=== PATIENT | male | born 1955 | race Caucasian/White ===

== ENCOUNTER → 2017-03-07 | Outpatient (CLI) | payer BC ==
[2017-03-07 08:28] LABS: Basophils # (A) 0.1 k/uL (0-0.2); Basophils % (A) 1 %; CH 33.6; CHCM 34.8; Eosinophils # (A) 0.3 k/uL (0-0.7); Eosinophils % (A) 5 %; HCT 48.7 % (39.0-53.0); HDW 2.72; Luc # (Auto) 0.13; Luc % (Auto) 2; Lymphocytes # (A) 1.7 k/uL (1.0-4.8); Lymphocytes % (A) 26 %; MCH 31.9 pg (25.0-35.0); MCHC 32.9 g/dL (31.0-37.0); MCV 96.9 fL (80.0-100.0); Mean Platelet Volume 8.3; Monocytes # (A) 0.5 k/uL (0-1.0); Monocytes % (A) 8 %; Neutrophils # (A) 3.9 k/uL (1.3-7.7); Neutrophils % (A) 58 %; RBC 5.02 m/uL (4.30-5.90); RDW 13.9 % (11.5-15.5); WBC 6.6 k/uL (3.8-10.6); WBC (Perox) 6.24
[2017-03-07 13:13] LABS: ALT 36 U/L (21-72); AST 28 U/L (17-59); Alkaline Phosphatase 55 U/L (38-126); Anion Gap 9 mmol/L; Blood Urea Nitrogen 26 mg/dL (9-20); Calcium 9.5 mg/dL (8.4-10.2); Carbon Dioxide 24 mmol/L (22-30); Chloride 106 mmol/L (98-107); Cholesterol 133 mg/dL (<200); Glucose 100 mg/dL (74-99); HDL Cholesterol 40 mg/dL (40-60); Non-African American GFR(MDRD) >60 (>60 ml/min/1.73 sqM); Potassium 5.3 mmol/L (3.5-5.1); Sodium 139 mmol/L (137-145); Total Bilirubin 0.8 mg/dL (0.2-1.3); Total Protein 6.5 g/dL (6.3-8.2)
== END | disposition home or self-care (01) ==
LOC: LABWHC1 07:41
PROVIDERS: ATTEND Internal Medicine Critical Care Medicine
DX: Z00.00 Encounter for general adult medical examination without abnormal findings (principal); I10 Essential (primary) hypertension; E78.5 Hyperlipidemia, unspecified; E03.9 Hypothyroidism, unspecified; H40.9 Unspecified glaucoma; Z12.5 Encounter for screening for malignant neoplasm of prostate
CPT/HCPCS: 84439; 80061; 80053; 83036; 84443; 85025; 82306; 36415; G0103

== ENCOUNTER → 2017-09-16 | Outpatient (CLI) | payer BC ==
[2017-09-16 10:59] LABS: T4, Free (Free Thyroxine) 1.44 ng/dL (0.78-2.19)
[2017-09-16 16:20] LABS: Thyroid Peroxidase Antibodies 51.3 U/mL (0.0-60.0)
[2017-09-16 17:39] LABS: Thyroglobulin 37.1 ng/mL (1.60-59.90)
[2017-09-17 11:18] LABS: T4, Total 9.3 ug/dL (4.5 - 10.9)
== END | disposition home or self-care (01) ==
LOC: LABWHC1 07:39
PROVIDERS: ATTEND Chiropractor
DX: E03.9 Hypothyroidism, unspecified (principal); R53.1 Weakness
CPT/HCPCS: 36415; 84432; 84436; 84439; 84443; 84479; 84480; 84481; 84482; 86376

== ENCOUNTER → 2018-03-30 | Outpatient (CLI) | payer BC ==
[2018-03-30 08:25] LABS: Basophils # (A) 0.1 k/uL (0-0.2); Basophils % (A) 1 %; Eosinophils # (A) 0.4 k/uL (0-0.7); Eosinophils % (A) 7 %; HCT 46.4 % (39.0-53.0); HGB 15.9 gm/dL (13.0-17.5); Lymphocytes # (A) 1.5 k/uL (1.0-4.8); Lymphocytes % (A) 26 %; MCH 32.2 pg (25.0-35.0); MCHC 34.3 g/dL (31.0-37.0); MCV 93.9 fL (80.0-100.0); Mean Platelet Volume 7.7; Monocytes # (A) 0.5 k/uL (0-1.0); Monocytes % (A) 8 %; Neutrophils # (A) 3.3 k/uL (1.3-7.7); Neutrophils % (A) 57 %; Platelet Count 189 k/uL (150-450); RBC 4.94 m/uL (4.30-5.90); RDW 13.3 % (11.5-15.5); WBC 5.8 k/uL (3.8-10.6)
[2018-03-30 09:05] LABS: Albumin 4.1 g/dL (3.5-5.0); Calcium 9.8 mg/dL (8.4-10.2); Potassium 4.6 mmol/L (3.5-5.1); Total Bilirubin 0.8 mg/dL (0.2-1.3); Total Protein 6.5 g/dL (6.3-8.2)
[2018-03-30 09:20] LABS: T4, Free (Free Thyroxine) 1.19 ng/dL (0.78-2.19)
[2018-03-30 12:09] LABS: PSA Annual Screen 3.97 ng/mL (0.00-4.00)
== END | disposition home or self-care (01) ==
LOC: LABWHC1 07:27
PROVIDERS: ATTEND Internal Medicine Critical Care Medicine
DX: Z00.00 Encounter for general adult medical examination without abnormal findings (principal); I10 Essential (primary) hypertension; E78.5 Hyperlipidemia, unspecified; E03.9 Hypothyroidism, unspecified; H40.9 Unspecified glaucoma; Z12.5 Encounter for screening for malignant neoplasm of prostate
CPT/HCPCS: 84439; 80061; 80053; 84443; 85025; 82306; 83036; 36415; G0103

== ENCOUNTER → 2018-10-20 | Outpatient (CLI) | payer BC | END | disposition home or self-care (01) | LOC: LABWHC1 07:22 | PROVIDERS: ATTEND Urology | DX: C61 Malignant neoplasm of prostate (principal) | CPT/HCPCS: 36415; 84153 ==

== ENCOUNTER → 2019-04-20 | Outpatient (CLI) | payer BC ==
[2019-04-20 08:28] LABS: Basophils # (A) 0.1 k/uL (0-0.2); Basophils % (A) 1 %; Eosinophils # (A) 0.4 k/uL (0-0.7); Eosinophils % (A) 6 %; HCT 45.6 % (39.0-53.0); HGB 15.8 gm/dL (13.0-17.5); Lymphocytes # (A) 1.6 k/uL (1.0-4.8); Lymphocytes % (A) 24 %; MCHC 34.8 g/dL (31.0-37.0); MCV 94.7 fL (80.0-100.0); Mean Platelet Volume 7.1; Monocytes # (A) 0.5 k/uL (0-1.0); Monocytes % (A) 7 %; Neutrophils # (A) 3.8 k/uL (1.3-7.7); Neutrophils % (A) 59 %; Platelet Count 210 k/uL (150-450); RBC 4.81 m/uL (4.30-5.90); WBC 6.4 k/uL (3.8-10.6)
[2019-04-20 11:43] LABS: African American GFR (CKD) 67.3 (60.0-200.0); Albumin 4.6 g/dL (3.80-4.90); Albumin/Globulin Ratio 2.88 (1.60-3.17); Anion Gap 6.4 mmol/L (4.00-12.00); BUN/Creat Ratio 16.92 Ratio (12.00-20.00); C Reactive Protein, High Sens 0.73 mg/L (0.000-3.000); Calcium 9.6 mg/dL (8.7-10.3); Carbon Dioxide 26.6 mmol/L (21.6-31.8); Chol/HDL Ratio 3.97; Globulin 1.6 g/dL (1.6-3.3); LDL Cholesterol,Calculated 93.8 mg/dL (0.0-131.0); Total Bilirubin 0.9 mg/dL (0.3-1.2); Total Protein 6.2 g/dL (6.2-8.2); VLDL Calculation 22.2 mg/dL (5.00-40.00)
[2019-04-20 11:50] LABS: T4, Free (Free Thyroxine) 1.4 ng/dL (0.80-1.80)
[2019-04-20 12:59] LABS: Hemoglobin A1C 4.7 % (4.0-6.0)
== END ==
LOC: LABWHC1 07:25
PROVIDERS: ATTEND Internal Medicine Critical Care Medicine
DX: Z00.00 Encounter for general adult medical examination without abnormal findings (principal); E78.5 Hyperlipidemia, unspecified; I10 Essential (primary) hypertension; E03.9 Hypothyroidism, unspecified; C61 Malignant neoplasm of prostate; H40.9 Unspecified glaucoma; I25.10 Atherosclerotic heart disease of native coronary artery without angina pectoris
CPT/HCPCS: 84439; 80061; 80053; 84443; 85025; 86141; 82306; 83036; 36415; G0103

== ENCOUNTER → 2019-04-22 | Outpatient (CLI) | payer BC ==
--- NOTE | 2019-04-22 11:59 | NM ---
EXAMINATION TYPE: NM stress cardiolite complete DATE OF EXAM: 04/22/2019 COMPARISON: NONE HISTORY: Chest pain and shortness of breath TECHNIQUE: After the intravenous administration of 10.0 mCi Tc 99m Sestamibi - Rest images obtained 45 minutes post injection. The patient exercised using a LOWELL protocol and 1 minute prior to peak exercise was injected with 25.3 mCi Tc 99m Sestamibi - Stress images obtained 20 minutes post injecti on. FINDINGS: Targeted heart rate was achieved during performance of the study. Very mild physiologic apical thinni ng. Review of stress and rest SPECT images demonstrates no distinct perfusion abnormality. Gated bernardo lysis shows normal wall motion with an estimated left ventricular ejection fraction of 60 %. TID is w ithin normal limits calculated at 0.96. IMPRESSION: No scintigraphic evidence for reversible ischemia
--- NOTE | 2019-04-22 13:20 | EST ---
EXERCISE STRESS DATE OF SERVICE: 04/22/2019 AGE: 64 SEX: Male HT: 71" WT: 220 pounds PROTOCOL: Cardiolite Silvestre STAGE: IV DURATION OF EXERCISE: 11 minutes 30 seconds HEART RATE REST: 51 BLOOD PRESSURE REST: 114/76 MAXIMUM HEART RATE ACHIEVED: 135 MAXIMUM BLOOD PRESSURE: 191/68 85% MPHR: 133 100% MPHR: 157 METS: 12.1 INDICATIONS: Chest pain. CLINICAL INFORMATION: STRESS DATA: Heart rate 51, pressure is 114/76 mmHg. Baseline EKG showed sinus mechanism. The patient exercised on the treadmill according to Silvestre protocol for a total of 11 minutes and 30 seconds and achieved 12.1 METs. Max heart rate was 135, which is about 86% of maximum predicted heart rate. Maximum blood pressure was 191/68 mmHg. Clinically the patient did not have any symptoms of chest pain or chest discomfort during the testing or on recovery. The EKG did not show any significant ST or T-wave abnormalities concerning for ischemia. CONCLUSION: 1. Excellent exercise tolerance. 2. Normal EKG in response to exercise. 3. Please follow up on the Cardiolite portion on separate report from Radiology Department. MMODL / IJN: [id number] /
== END | disposition home or self-care (01) ==
LOC: RADNMMAIN 07:54
PROVIDERS: ATTEND Internal Medicine Critical Care Medicine
DX: I25.10 Atherosclerotic heart disease of native coronary artery without angina pectoris (principal); R06.02 Shortness of breath
CPT/HCPCS: 93017; 78452; A9500

== ENCOUNTER → 2019-05-21 | Outpatient (CLI) | payer BC ==
--- NOTE | 2019-05-23 10:57 | MR ---
EXAMINATION TYPE: MR Prostate wo/w con DATE OF EXAM: 05/21/2019 COMPARISON: None. IMAGE QUALITY: Satisfactory. INDICATION: Malignant neoplasm of prostate PSA: 4.9 ng/ml on April 20, 2019. Recent Biopsy and Date: April 27, 2018 Pathology Report (If Applicable): Right lateral base adenocarcinoma [place] 3+3 = 6 1.7 mm length 12% tissue. Left lateral apex adenocarcinoma [place] grade 3+3 = 6 measuring 0.3 mm in length 1.6% tissu e. TECHNIQUE: Examination was performed using a 3T MRI without an endorectal coil. Multiparametric imaging was perf ormed with T2 mutliplanar sequences, axial diffusion weighted imaging and dynamic contrast enhanced i maging, utilizing 11 mL intravenous Gadavist gadolinium contrast. FINDINGS: There is no clinically significant cancer identified. PROSTATE VOLUME: 4.7 cm SI x 4.4 cm AP x 5.3 cm LR Vol= 57.39 cc PSA DENSITY: 6.89 ng/ml/cc Peripheral zones show some slight indistinct hypointense areas on ADC mapping without significant foc al areas at least qust-po-mndgclnl hypointensity. In the right base there is area of heterogeneous diminished signal with obscured margins seen best co fermín image 7 lateral aspect without restricted diffusion. No areas of at least moderately hypointens e signal are identified on T2 weighted images. Prostatic capsule is intact. Seminal vesicles are within normal limits. No adjacent adenopathy is see n. No internal hemorrhage noted on T1-weighted images. Bladder shows mild trabeculation and minimal c oncentric wall thickening. Visualized osseous structures are intact. No pelvic fluid collection is seen. Visualized bowel loops show occasional diverticula. IMPRESSION: A focus of clinically significant cancer is not identified. Highest Assessment Category: 3 MRI Stage: T1c N0 M0 based on review of pelvic images. False negative rates for MRI range from 5-20% depending on risk profile. Assessment Categories: 1 ? Very low (clinically significant cancer is highly unlikely to be present) 2 ? Low (clinically significant cancer is unlikely to be present) 3 ? Intermediate (the presence of clinically significant cancer is equivocal) 4 ? High (clinically significant cancer is likely to be present) 5 ? Very high (clinically significant cancer is highly likely to be present)
== END | disposition home or self-care (01) ==
LOC: RADMRIMAIN 05:57
PROVIDERS: ATTEND Urology
DX: C61 Malignant neoplasm of prostate (principal)
CPT/HCPCS: 72197; A9585

== ENCOUNTER → 2020-10-05 | Outpatient (CLI) | payer BC ==
[2020-10-05 15:30] LABS: Basophils # (A) 0.05 X 10*3/uL (0.00-0.10); Basophils % (A) 0.9 %; Eosinophils # (A) 0.43 X 10*3/uL (0.04-0.35); Eosinophils % (A) 7.4 %; HCT 44.5 % (39.6-50.0); HGB 15.5 g/dL (13.0-17.0); Lymphocytes # (A) 1.63 X 10*3/uL (0.90-5.00); Lymphocytes % (A) 28.2 %; MCH 32.7 pg (27.0-32.0); MCHC 34.8 g/dL (32.0-37.0); MCV 93.9 fL (80.0-97.0); Mean Platelet Volume 11.5 fL (9.5-12.2); Monocytes # (A) 0.61 X 10*3/uL (0.20-1.00); Monocytes % (A) 10.5 %; Neutrophils # (A) 3.06 X 10*3/uL (1.80-7.70); Neutrophils % (A) 52.8 %; Platelet Count 185 X 10*3/uL (140-440); RBC 4.74 X 10*6/uL (4.40-5.60); RDW 12.7 % (11.5-14.5); WBC 5.79 X 10*3/uL (4.50-10.00)
[2020-10-05 23:10] LABS: African American GFR (CKD) 73.6 (60.0-200.0); Albumin 4.5 g/dL (3.80-4.90); Anion Gap 7.8 mmol/L (4.00-12.00); Carbon Dioxide 23.2 mmol/L (21.6-31.8); Chol/HDL Ratio 4.74; Globulin 1.5 g/dL (1.6-3.3); Non-African American GFR(CKD) 63.5 (60.0-200.0); Potassium 4.6 mmol/L (3.5-5.5); Total Bilirubin 0.8 mg/dL (0.2-1.2)
[2020-10-05 23:19] LABS: Prostate Specific Antigen 6.2 ng/mL (0.0-4.5); T4, Free (Free Thyroxine) 1.3 ng/dL (0.80-1.80)
== END | disposition home or self-care (01) ==
LOC: LABWHC1 07:38
PROVIDERS: ATTEND Urology
DX: E78.5 Hyperlipidemia, unspecified (principal); E03.9 Hypothyroidism, unspecified; I10 Essential (primary) hypertension; C61 Malignant neoplasm of prostate
CPT/HCPCS: 36415; 80053; 80061; 82306; 83036; 84153; 84439; 84443; 85025

== ENCOUNTER → 2021-03-22 | Outpatient (CLI) | payer BC ==
--- NOTE | 2021-03-22 15:37 | MR ---
EXAMINATION TYPE: MR knee LT wo con DATE OF EXAM: 03/22/2021 COMPARISON: Outside left knee x-rays March 05, 2021 HISTORY: Left knee pain and swelling, injury 3 months ago while exercising. TECHNIQUE: Multiplanar, multisequence imaging of the left knee is performed without IV contrast. FINDINGS: MEDIAL MENISCUS: Wrist fraying along the posterior and inferior aspect of the posterior horn medial m eniscus with loss deep central portion of the meniscus. LATERAL MENISCUS: Anterior and posterior horns are intact without tear. CRUCIATE LIGAMENTS: The anterior and posterior cruciate ligaments are intact and unremarkable. COLLATERAL LIGAMENTS: The medial collateral ligament and lateral collateral ligament complex are inta ct and unremarkable. EXTENSOR MECHANISM: Visualized quadriceps and patellar tendons are intact. EFFUSION: No significant suprapatellar joint effusion. POPLITEAL CYST: No popliteal/loco cyst. TRICOMPARTMENT SPACES: Moderate to severe narrowing inferior patellofemoral compartment. Moderate to severe narrowing medial greater than lateral tibiofemoral compartments. Mild to moderate tricompartme nt joint space spurring. CARTILAGE: Significant chondromalacia patella with full-thickness cartilaginous loss along the inferi or aspect of the posterior patellar pole. Significant full-thickness cartilaginous loss medial tibiof emoral compartment. BONE MARROW SIGNAL: Some areas of heterogeneous increased T2 signal in the inferior posterior patella r pole at site of full-thickness cartilaginous loss. In the distal medial femoral condyle there is serpiginous low T1 signal sagittal image 23 and coronal image 23 along the posterior medial aspect extending to articular surface. There are additional area s of heterogeneous increased T2 signal throughout the posterior aspect of the distal medial femoral c ondyle. There are some heterogeneous areas of increased T2 signal involving the anterior medial aspec t of the tibial plateau. OTHER: No additional significant abnormality is appreciated. IMPRESSION: 1. Full-thickness tear posterior horn into central body with large defect appreciated. Location of me niscal fragment is not distinctly identified. 2. Moderate to advanced degenerative changes greatest inferior patellofemoral and medial tibiofemoral compartments as detailed above. Evidence of subchondral insufficiency fracture without bony fragment ation in the posterior medial aspect distal femur medial femoral condyle.
== END | disposition home or self-care (01) ==
LOC: RADMRIMAIN 07:38
PROVIDERS: ATTEND Orthopaedic Surgery
DX: M17.12 Unilateral primary osteoarthritis, left knee (principal); M23.222 Derangement of posterior horn of medial meniscus due to old tear or injury, left knee

== ENCOUNTER → 2021-04-02 | Outpatient (CLI) | payer BC ==
[2021-04-02 12:03] LABS: Potassium 4.6 mmol/L (3.5-5.1)
[2021-04-02 12:43] LABS: Basophils # (A) 0.1 k/uL (0-0.2); Basophils % (A) 1 %; Eosinophils # (A) 0.6 k/uL (0-0.7); Eosinophils % (A) 7 %; HCT 48.6 % (39.0-53.0); HGB 16.2 gm/dL (13.0-17.5); Hyperchromasia Slight; Lymphocytes # (A) 2.1 k/uL (1.0-4.8); Lymphocytes % (A) 26 %; MCHC 33.4 g/dL (31.0-37.0); MCV 95.9 fL (80.0-100.0); Mean Platelet Volume 8.9; Monocytes # (A) 0.6 k/uL (0-1.0); Monocytes % (A) 7 %; Neutrophils # (A) 4.6 k/uL (1.3-7.7); Neutrophils % (A) 56 %; Platelet Count 198 k/uL (150-450); RBC 5.06 m/uL (4.30-5.90); RDW 13.4 % (11.5-15.5); WBC 8.2 k/uL (3.8-10.6)
== END | disposition home or self-care (01) ==
LOC: LABPAT 11:13
PROVIDERS: ATTEND Orthopaedic Surgery
DX: Z01.818 Encounter for other preprocedural examination (principal); M23.92 Unspecified internal derangement of left knee; R00.1 Bradycardia, unspecified
CPT/HCPCS: 36415; 80051; 85025; 93005

== ENCOUNTER → 2021-04-13 | Day surgery (SDC) | payer BC ==
--- NOTE | 2021-04-11 13:35 | HP ---
HISTORY AND PHYSICAL CHIEF COMPLAINT: Left knee pain. 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 He hurt himself on his elliptical. He notes medial pain that increases with daily activity. He occasionally has giving way, particularly going downstairs. He has tried medications in addition to rest and activity modifications, without much relief. PAST MEDICAL HISTORY: Significant for hypertension, hyperlipidemia and hypothyroidism. PAST SURGICAL HISTORY: Significant for tonsillectomy. CURRENT MEDICATIONS: Combigan, lisinopril, simvastatin and Synthroid. ALLERGIES: PENICILLIN. FAMILY HISTORY: Noncontributory. SOCIAL HISTORY: Significant for social alcohol use. REVIEW OF SYSTEMS: Sixteen-point review of systems otherwise reviewed and is noncontributory. PHYSICAL EXAMINATION: On examination, the patient is approximately 5 feet 11 inches, 215 pounds of endomorphic habitus. HEENT exam is nonfocal. Neck is supple. He has painless passive motion of his left hip. Straight-leg raise is negative. Active motion of the left knee minus 8 to 120 degrees of flexion. He has a mild effusion. He is tender about the medial joint line. Collaterals are stable, Catherine is negative, Дмитрий's elicits medial pain. His distal neurovascular exam appears intact in the left lower extremity. MRI report left knee 03/22/2021 shows evidence of a posteromedial meniscal tear along with posteromedial femoral condyle chondral defect. IMPRESSION: 1. Left knee internal derangement with symptomatic medial meniscal tear. 2. Left knee moderate tricompartmental osteoarthrosis. RECOMMENDATIONS: I talked to the patient at length regarding his condition along with treatment options. At this point he is quite symptomatic, having pain and mechanical symptoms after this acute injury despite conservative treatment. After a thorough discussion, he opts to proceed with surgery. We will plan to proceed with arthroscopic evaluation with possible partial medial meniscectomy in addition to arthroscopic medial femoral chondrectomy. We will likely perform that as an outpatient procedure. Risks and benefits were discussed at length in layman's terms. MMODL / IJN: [id number] /
[2021-04-11 15:35] VITALS: BMI 29.9
[~2021-04-13] MED LIST: CLINDAMYCIN 900 MG in DEXTROSE 5% IN WATER 50 ML IVPB PRN; DEXAMETHASONE SOD PHOSPHATE 4 MG/ML 1 ML VIAL IV ONE; HYDROcodone/APAP 5-325MG 1 EACH TAB ONE; HYDROcodone/APAP 5-325MG 1 EACH TAB PO ONE; LACTATED RINGERS 1,000 ML IV ONE; LACTATED RINGERS 1,000 ML IV SCH; LIDOCAINE 1% INJ 10MG/ML (20 ML MDV) ONE; MIDAZOLAM 2 MG/2 ML VIAL IV PRN; MIDAZOLAM 2 MG/2 ML VIAL ONE; ONDANSETRON 4 MG/2 ML VIAL IVP ONE; ONDANSETRON 4 MG/2 ML VIAL ONE; PROPOFOL 10 MG/ML 20 ML VIAL IV ONE; Pre Op ABX Message 1 EACH MISC MISCELLANE ONE; SCOPOLAMINE 1.5MG/72HR PATCH TRANSDERM ONE; fentaNYL (PF) 50 MCG/ML 2 ML AMP ONE
--- NOTE | 2021-04-13 12:22 | P.OP ---
Date of Procedure: 04/13/21 Preoperative Diagnosis: Left knee internal derangement Postoperative Diagnosis: Left knee posterior medial meniscal tear Procedure(s) Performed: Left knee arthroscopic partial medial meniscectomy Anesthesia: FELIXA Surgeon: Dylan Mcqueen Estimated Blood Loss (ml): 10 Pathology: none sent Condition: stable Disposition: PACU Indications for Procedure: Patient 66-year-old male who presents with progressive left knee pain and mechanical symptoms after previous twisting injury despite conservative measures. A discussion of the risks and benefits of operative intervention versus continued conservative measures was made patient. He opted to surgery. Operative risks to include infection, neurovascular injury, development of blood clots, possible incomplete resolution of symptoms, possible worsening symptoms and need for subsequent procedures was discussed. Informed consent was obtained. Operative Findings: As below Description of Procedure: The patient was brought to the operating room, and after induction of general anesthesia examined the left knee. Collaterals were stable, Catherine was negative, and posterior drawer was negative. The left lower extremity was prepped and draped in a normal fashion. A superior lateral portal was made through a 3 mm skin incision superior and lateral to the patella. This was used for outflow. A lateral portal was made through a 5 mm vertical skin incision lateral to the patella tendon above the joint line. Diagnostic arthroscopy was performed. On inspection of the medial compartment, a complex tear involving the posterior horn medial meniscus in the white-red junction was noted. This was debrided back to stable base with straight baskets and a motorized shaver. Grade 2-3 chondral changes were noted diffusely involving the posterior medial femoral condyle. On inspection of the notch, the anterior cruciate ligament appeared to be intact. On inspection of the lateral compartment, grade 2 chondral changes were noted diffusely. The lateral meniscus appeared to be intact.. On inspection of the patellofemoral articulation, there is chondral fibrillation however no loose chondral fragments. The gutters were clear debris. The knee was then thoroughly irrigated. The portals were closed with Steri-Strips. A sterile dressing was applied in addition to a compression stocking. The patient was awoken from general anesthesia and transferred to r ecovery room in good condition. Blood loss was estimated at 10 mL. No complications were incurred.
[2021-04-13 12:29] VITALS: TEMP 97.5
[2021-04-13] MEDS: HYDROmorphone 0.5 MG/0.5 ML SYRINGE IVP PRN ×2 (12:34→12:46)
[2021-04-13 14:37] VITALS: BP 129/85; PULSE 56; RESP 16
== END | disposition home or self-care (01) ==
LOC: OR 10:11
PROVIDERS: ATTEND Orthopaedic Surgery
DX: S83.242A Other tear of medial meniscus, current injury, left knee, initial encounter (principal); M17.12 Unilateral primary osteoarthritis, left knee; Y93.A1 Activity, exercise machines primarily for cardiorespiratory conditioning; I10 Essential (primary) hypertension; E78.5 Hyperlipidemia, unspecified; E03.9 Hypothyroidism, unspecified; Z98.890 Other specified postprocedural states; Z79.890 Hormone replacement therapy; Z79.899 Other long term (current) drug therapy; Z88.0 Allergy status to penicillin; Z88.2 Allergy status to sulfonamides; Z85.46 Personal history of malignant neoplasm of prostate
CPT/HCPCS: 29881; J2250; J1100; J2405; J2001; J3010; J2704; J1170

== ENCOUNTER 2021-05-16 08:09 | Day surgery (SDC) | payer BC ==
[2021-05-09 11:51] VITALS: BMI 30.7
[~2021-05-16 08:09] MED LIST changes: -CLINDAMYCIN 900 MG in DEXTROSE 5% IN WATER 50 ML IVPB PRN; -DEXAMETHASONE SOD PHOSPHATE 4 MG/ML 1 ML VIAL IV ONE; -HYDROcodone/APAP 5-325MG 1 EACH TAB ONE; -HYDROcodone/APAP 5-325MG 1 EACH TAB PO ONE; -LACTATED RINGERS 1,000 ML IV ONE; -LIDOCAINE 1% INJ 10MG/ML (20 ML MDV) ONE; -MIDAZOLAM 2 MG/2 ML VIAL IV PRN; -MIDAZOLAM 2 MG/2 ML VIAL ONE; -ONDANSETRON 4 MG/2 ML VIAL IVP ONE; -ONDANSETRON 4 MG/2 ML VIAL ONE; -PROPOFOL 10 MG/ML 20 ML VIAL IV ONE; -Pre Op ABX Message 1 EACH MISC MISCELLANE ONE; -SCOPOLAMINE 1.5MG/72HR PATCH TRANSDERM ONE; -fentaNYL (PF) 50 MCG/ML 2 ML AMP ONE
[2021-05-16 08:37] VITALS: TEMP 96
[2021-05-16] MEDS ORDERED: LIDOCAINE 1% INJ 10MG/ML (20 ML MDV) ONE (09:08)
[2021-05-16] MEDS ORDERED: PROPOFOL 10 MG/ML 20 ML VIAL IV ONE (09:08)
--- NOTE | 2021-05-16 09:24 | P.PCN ---
Date of Procedure: 05/16/21 Procedure(s) Performed: BRIEF HISTORY: Patient is a 66-year-old pleasant white male scheduled for an elective colonoscopy as a part of screening for colorectal neoplasia. PROCEDURE PERFORMED: Colonoscopy. PREOPERATIVE DIAGNOSIS: Screening for colon cancer. IV sedation per Anesthesia. PROCEDURE: After informed consent was obtained, the patient, was brought into the endoscopy unit. IV sedation was administered by Anesthesia under continuous monitoring. Digital rectal examination was normal. Initially the Olympus CF-160 flexible video colonoscope was then inserted in the rectum, gradually advanced into the cecum without any difficulty. Careful examination was performed as the scope was gradually being withdrawn. Ileocecal valve and the appendiceal orifice were visualized and appeared normal. Prep was excellent. Mucosa of the cecum, ascending colon, transverse colon, descending colon, sigmoid colon, and rectum appeared normal. Scattered sigmoid diverticulosis. Retroflexion was performed in the rectum and small internal were seen. The patient tolerated the procedure well. IMPRESSION: Normal-appearing colon from rectum to cecum with no evidence of colorectal neoplasia . Scattered sigmoid diverticulosis RECOMMENDATIONS: Findings of this examination were discussed with the patient as well as his family. Advised to have a repeat screening colonoscopy in 10 years..
[2021-05-16 09:53] VITALS: BP 136/81; PULSE 62; RESP 16
== END 2021-05-16 10:19 | disposition home or self-care (01) ==
LOC: ORWHC2ENDO 08:09
PROVIDERS: ATTEND Internal Medicine Gastroenterology
DX: Z12.11 Encounter for screening for malignant neoplasm of colon (principal); K57.30 Diverticulosis of large intestine without perforation or abscess without bleeding
CPT/HCPCS: G0121; J2001; J2704

== ENCOUNTER → 2021-10-05 | Outpatient (CLI) | payer BC ==
[2021-10-05 10:25] LABS: Basophils # (A) 0.06 X 10*3/uL (0.00-0.10); Basophils % (A) 1.2 %; Eosinophils # (A) 0.54 X 10*3/uL (0.04-0.35); Eosinophils % (A) 10.8 %; HCT 43.2 % (39.6-50.0); HGB 14.9 g/dL (13.0-17.0); Immature Grans, Automated 0.4 %; Lymphocytes # (A) 1.69 X 10*3/uL (0.90-5.00); Lymphocytes % (A) 33.7 %; MCH 31.6 pg (27.0-32.0); MCHC 34.5 g/dL (32.0-37.0); MCV 91.5 fL (80.0-97.0); Mean Platelet Volume 11.2 fL (9.5-12.2); Monocytes # (A) 0.74 X 10*3/uL (0.20-1.00); Monocytes % (A) 14.7 %; NRBC Per 100 WBC 0 /100 WBCS (0.0-0.0); Neutrophils # (A) 1.97 X 10*3/uL (1.80-7.70); Neutrophils % (A) 39.2 %; Platelet Count 196 X 10*3/uL (140-440); RBC 4.72 X 10*6/uL (4.40-5.60); RDW 12.8 % (11.5-14.5); WBC 5.02 X 10*3/uL (4.50-10.00)
[2021-10-05 10:49] LABS: ALT 40 U/L (10-49); AST 36 U/L (14-35); African American GFR (CKD) 73.1 (60.0-200.0); Albumin 4.4 g/dL (3.8-4.9); Albumin/Globulin Ratio 2.75 (1.60-3.17); Alkaline Phosphatase 60 U/L (41-126); BUN/Creat Ratio 22.17 Ratio (12.00-20.00); Blood Urea Nitrogen 26.6 mg/dL (9.0-27.0); Calcium 9.2 mg/dL (8.7-10.3); Carbon Dioxide 24.9 mmol/L (20.0-27.5); Chloride 106 mmol/L (96-109); Chol/HDL Ratio 4.31 Ratio; Globulin 1.6 g/dL (1.6-3.3); Glucose 116 mg/dL (70-110); LDL Cholesterol,Calculated 92.4 mg/dL (0.0-131.0); Non-African American GFR(CKD) 63.1 (60.0-200.0); Sodium 139 mmol/L (135-145)
== END | disposition home or self-care (01) ==
LOC: LABWHC1 07:12
PROVIDERS: ATTEND Internal Medicine Critical Care Medicine
DX: Z00.00 Encounter for general adult medical examination without abnormal findings (principal); C61 Malignant neoplasm of prostate; I10 Essential (primary) hypertension; E78.5 Hyperlipidemia, unspecified; E03.9 Hypothyroidism, unspecified; H40.9 Unspecified glaucoma
CPT/HCPCS: 84439; 80061; 80053; 84443; 85025; 82306; 83036; 36415; G0103

== ENCOUNTER → 2021-11-29 | Outpatient (CLI) | payer BC | END | disposition home or self-care (01) | LOC: LABWHC1 08:25 | PROVIDERS: ATTEND Urology | DX: C61 Malignant neoplasm of prostate (principal) | CPT/HCPCS: 36415; 84153 ==

== ENCOUNTER → 2022-01-22 | Outpatient (CLI) | payer BC ==
--- NOTE | 2022-01-25 22:25 | MR ---
EXAMINATION TYPE: MR Prostate wo/w con DATE OF EXAM: 01/22/2022 10:28 AM COMPARISON: 05/23/2019 prostate MRI. CLINICAL INDICATION:Male, 66 years old with history of C61 Prostate cancer; TECHNIQUE: Multi-planar, multi-sequence imaging of the pelvis is performed prior to and following the uncomplicated administration of bolus intravenous gadolinium. CONTRAST: 10 Gadavist Interpretive Criteria: PI-RADS v2.1 SERUM PSA: 4.5 on 11/29/2021. SURGICAL PATHOLOGY: Biopsy 11/27/2020, benign. FINDINGS: Prostatic dimensions: 6.1 x 4.3 x 6.2 cm. Prostatic Ellipsoid Volume: 85.15 cc PSA density: 0.05 ng/mL/mL. CENTRAL GLAND (Central and Transition Zones/CZ+TZ): Multiple bilateral, heterogenous appearing hypertrophic stromal nodules, without suspicious lesion. M edian lobe hypertrophy with protrusion into the base of the bladder. (PI-RADS 2) PERIPHERAL ZONE (PZ): Bilateral linear, indistinct wedgelike areas of low ADC, and low T2 signal, No evidence of masslike a bnormality, or localized perfusional hypervascularity, to further suggest a focus of clinically signi ficant prostate cancer. (PI-RADS 2) SEMINAL VESICLES (SV): Diffusely collapse or atrophic, bilaterally. PERIPROSTATIC TISSUES: Unremarkable. LYMPH NODES: No enlarged pelvic lymph node. Mildly enlarged left inguinal lymph node measuring up to millimeters in short axis. REMAINING PELVIS: Bladder wall is within normal limits given distention. No abnormal free or organized intrapelvic fluid collection. No pathologic bowel dilation or mural thickening. Bilateral fat filled inguinal hernias. OSSEOUS STRUCTURES: No suspicious osseous abnormality. IMPRESSION: 1. No specific features for high-risk prostate cancer. Maximum PI-RADS score: 2. 2. Moderate BPH, estimated gland volume 85 mL. 3. No suspicious osseous lesion. No lymphadenopathy. No evidence of prostate adenocarcinoma involving the periprostatic tissues.
== END | disposition home or self-care (01) ==
LOC: RADMRIMAIN 09:13
PROVIDERS: ATTEND Urology
DX: C61 Malignant neoplasm of prostate (principal)
CPT/HCPCS: 72197; A9585

== ENCOUNTER 2022-02-19 09:23 | Emergency (ER) | payer BC ==
[2022-02-19 09:41] VITALS: BP 140/90; PULSE 63; RESP 20; TEMP 98
[2022-02-19] MEDS ORDERED: GELATIN SPONGE,ABSORB (SMALL) 1 EACH SPONGE TOPICAL STA (10:30)
[2022-02-19] MEDS ORDERED: DIPH,PERTUS(ACELL)TETVAC-LF 0.5 ML VIAL IM ONE (10:31)
--- NOTE | 2022-02-19 10:34 | ED ---
General Adult HPI - General Chief complaint: Wound/Laceration Stated complaint: Finger injury Time Seen by Provider: 02/19/22 10:30 Source: patient Mode of arrival: ambulatory Limitations: no limitations - History of Present Illness Initial comments: Dictation was produced using [employer] dictation software. please excuse any grammatical, word or spelling errors. Chief Complaint: 67-year-old male presents to the emergency department for left thumb injury History of Present Illness: Patient is 67-year-old male presents emergency depa rtment for left thumb injury. Patient was cutting with his which are knife when he cut a piece off the lateral portion of the palmar side of his thumb. Event occurred approximately 24 hours prior to arrival. He was urged by his to come to the emergency department to be evaluated. Patient's tetanus shot is not up-to-date. States it is been more than 5 years. Patient did not come to the emergency department yesterday because he felt like he did not need stitches. His is worried that he might get an infection. The ROS documented in this emergency department record has been reviewed and confirmed by me. Those systems with pertinent positive or negative responses have been documented in the HPI. All other systems are other negative and/or noncontributory. PHYSICAL EXAM: General Impression: Alert and oriented x3, not in acute distress HEENT: Normocephalic atraumatic, extra-ocular movements intact, pupils equal and reactive to light bilaterally, mucous membranes moist. Cardiovascular: Heart regular rate and rhythm Chest: Able to complete full sentences, no retractions, no tachypnea Motor: no focal deficits noted Neurological: CN II-XII grossly intact, no focal motor or sensory deficits noted Skin: Intact with no visualized rashes Psych: Normal affect and mood Left hand: Avulsion with exposed dermis to the lateral portion of the left thumb on the palmar side measuring approximately 4 x 4 millimeters. ED course: T7-year-old male presents to the emergency department clinical presentation consistent with avulsion injury to the tip of the left thumb. No indication for suture repair given that patient's wound is 24 hours out furthermore there does not appear to be any tissue to approximate for suture repair. Vital signs upon arrival are within acceptable limits. Gelfoam dressing was placed. Patient given prophylactic antibiotics to begin taking if he develops any sort of redness or discharge. Tetanus was updated. - Related Data Home Medications Medication Instructions Recorded Confirmed Brimonidine Tartrate/Timolol 1 drop LEFT EYE Q12HR 09/27/14 05/16/21 [Combigan 0.2%/0.5% Ophth Soln] Folic Acid 1 mg PO DAILY 09/27/14 05/16/21 Latanoprost 1 drop LEFT EYE HS 09/27/14 05/16/21 Levothyroxine Sodium [Synthroid] 100 mcg PO DAILY 09/27/14 05/16/21 Simvastatin 40 mg PO HS 09/27/14 05/16/21 Ubidecarenone [Co Q-10] 300 mg PO BID 09/27/14 05/16/21 lisinopriL [Lisinopril] 10 mg PO DAILY 09/27/14 05/16/21 Cholecalciferol [Vitamin D3] 1,000 unit PO DAILY 09/29/14 05/16/21 Previous Rx's Medication Instructions Recorded Cephalexin [Keflex] 500 mg PO Q6HR 5 Days #20 cap 02/19/22 Allergies Allergy/AdvReac Type Severity Reaction Status Date / Time Penicillins Allergy Swelling Verified 02/19/22 09:40 sulfite Allergy POSITIVE Verified 02/19/22 09:40 ON ALLERGY TEST Review of Systems ROS Statement: Those systems with pertinent positive or pertinent negative responses have been documented in the HPI. ROS Other: All systems not noted in ROS Statement are negative. Past Medical History Past Medical History: Eye Disorder, Hyperlipidemia, Hypertension, Thyroid Disorder Additional Past Medical History / Comment(s): GLAUCOMA LT EYE R/T INJURY. History of Any Multi-Drug Resistant Organisms: None Reported Past Surgical History: Orthopedic Surgery, Tonsillectomy Additional Past Surgical History / Comment(s): COLONOSCOPY Past Anesthesia/Blood Transfusion Reactions: Motion Sickness Smoking Status: Never smoker Past Alcohol Use History: Occasional Past Drug Use History: None Reported General Exam Limitations: no limitations Course Vital Signs 02/19/22 09:38 Temperature 98 F Pulse Rate 63 Respiratory 20 Rate Blood Pressure 140/90 O2 Sat by Pulse 97 Oximetry Disposition Clinical Impression: Laceration Disposition: HOME SELF-CARE Condition: Good Instructions (If sedation given, give patient instructions): Skin Avulsion (ED) Prescriptions: Cephalexin [Keflex] 500 mg PO Q6HR 5 Days #20 cap Is patient prescribed a controlled substance at d/c from ED?: No Referrals: Basha,Guillermo, DO [Primary Care Provider] - 1-2 days Time of Disposition: 10:50
== END 2022-02-19 11:05 | disposition home or self-care (01) ==
LOC: EC 09:23
DX: S61.012A Laceration without foreign body of left thumb without damage to nail, initial encounter (principal); E78.5 Hyperlipidemia, unspecified; I10 Essential (primary) hypertension; E07.9 Disorder of thyroid, unspecified; Z23 Encounter for immunization; Z79.890 Hormone replacement therapy; Z79.899 Other long term (current) drug therapy; Z88.0 Allergy status to penicillin; Z88.2 Allergy status to sulfonamides; W26.0XXA Contact with knife, initial encounter
CPT/HCPCS: 90471; 90715; 99282

== ENCOUNTER → 2022-09-27 | Outpatient (CLI) | payer BC | END | disposition home or self-care (01) | LOC: LABWHC1 07:45 | PROVIDERS: ATTEND Urology | DX: C61 Malignant neoplasm of prostate (principal) | CPT/HCPCS: 36415; 84153 ==

== ENCOUNTER → 2022-10-11 | Outpatient (CLI) | payer BC ==
[2022-10-11 11:06] LABS: Basophils # (A) 0.06 X 10*3/uL (0.00-0.10); Basophils % (A) 1.1 %; Eosinophils # (A) 0.35 X 10*3/uL (0.04-0.35); Eosinophils % (A) 6.2 %; HCT 43.8 % (39.6-50.0); HGB 15.5 g/dL (13.0-17.0); Immature Grans, Automated 0.4 %; Lymphocytes # (A) 1.45 X 10*3/uL (0.90-5.00); Lymphocytes % (A) 25.8 %; MCH 32.3 pg (27.0-32.0); MCHC 35.4 g/dL (32.0-37.0); MCV 91.3 fL (80.0-97.0); Mean Platelet Volume 11.1 fL (9.5-12.2); Monocytes % (A) 12.4 %; NRBC Per 100 WBC 0 /100 WBCS (0.0-0.0); Neutrophils # (A) 3.05 X 10*3/uL (1.80-7.70); Neutrophils % (A) 54.1 %; Platelet Count 188 X 10*3/uL (140-440); RDW 12.7 % (11.5-14.5); WBC 5.63 X 10*3/uL (4.50-10.00)
[2022-10-11 12:24] LABS: ALT 22 U/L (10-49); AST 23 U/L (14-35); African American GFR (CKD) 65.9 (60.0-200.0); Albumin 4.4 g/dL (3.8-4.9); Albumin/Globulin Ratio 2.75 (1.60-3.17); Alkaline Phosphatase 68 U/L (41-126); BUN/Creat Ratio 13.77 Ratio (12.00-20.00); Blood Urea Nitrogen 17.9 mg/dL (9.0-27.0); Calcium 9.9 mg/dL (8.7-10.3); Carbon Dioxide 27.5 mmol/L (20.0-27.5); Chloride 105 mmol/L (96-109); Chol/HDL Ratio 4.28 Ratio; Globulin 1.6 g/dL (1.6-3.3); Glucose 105 mg/dL (70-110); LDL Cholesterol,Calculated 71.2 mg/dL (0.0-131.0); Non-African American GFR(CKD) 56.9 (60.0-200.0); Potassium 5.7 mmol/L (3.5-5.5); Sodium 140 mmol/L (135-145)
== END | disposition home or self-care (01) ==
LOC: LABWHC1 07:13
PROVIDERS: ATTEND Internal Medicine Critical Care Medicine
DX: C61 Malignant neoplasm of prostate (principal); H40.9 Unspecified glaucoma; E03.9 Hypothyroidism, unspecified; E78.5 Hyperlipidemia, unspecified
CPT/HCPCS: 36415; 80053; 80061; 82306; 83036; 84439; 84443; 85025

== ENCOUNTER 2023-04-01 10:10 | Day surgery (SDC) | payer BC ==
--- NOTE | 2023-04-01 06:55 | P.GSHP ---
History of Present Illness H&P Date: 04/01/23 Chief Complaint: Prostate Cancer The patient is a 68-year-old white male admitted with Mark 6 prostate cancer in April 2018. Alternative treatment options were reviewed, and he has elected to proceed with active surveillance rather than active treatment. Repeat prostate biopsies in November 2020 showed no evidence of malignancy. Prostate volume at that time was 76 mL. MRI in January 2022 showed a prostate volume of 85 mL with no suspicious lesions. He now comes for a prostate ultrasound with biopsies. - Cardiovascular Cardiovascular: Reports high blood pressure - Genitourinary (Male) Genitourinary: Reports nocturia Past Medical History Past Medical History: Eye Disorder, Hyperlipidemia, Hypertension, Thyroid Disorder Additional Past Medical History / Comment(s): GLAUCOMA LT EYE R/T INJURY. History of Any Multi-Drug Resistant Organisms: None Reported Past Surgical History: Orthopedic Surgery, Tonsillectomy Additional Past Surgical History / Comment(s): COLONOSCOPY Past Anesthesia/Blood Transfusion Reactions: Motion Sickness Smoking Status: Never smoker Medications and Allergies Home Medications Medication Instructions Recorded Confirmed Type Brimonidine Tartrate/Timolol 1 drop LEFT EYE Q12HR 09/27/14 03/25/23 History [Combigan 0.2%/0.5% Oph Soln] Folic Acid 1 mg PO DAILY 09/27/14 03/25/23 History Latanoprost 1 drop LEFT EYE HS 09/27/14 03/25/23 History Levothyroxine Sodium [Synthroid] 125 mcg PO DAILY 09/27/14 03/25/23 History Simvastatin 40 mg PO HS 09/27/14 03/25/23 History Ubidecarenone [Co Q-10] 300 mg PO BID 09/27/14 03/25/23 History lisinopriL [Lisinopril] 10 mg PO DAILY 09/27/14 03/25/23 History Cholecalciferol [Vitamin D3] 1,000 unit PO DAILY 09/29/14 03/25/23 History Allergies Allergy/AdvReac Type Severity Reaction Status Date / Time Penicillins Allergy Swelling Verified 03/25/23 15:07 sulfite Allergy POSITIVE Verified 03/25/23 15:07 ON ALLERGY TEST Surgical - Exam - General well developed, well nourished, no distress - Respiratory normal respiratory effort - Abdomen Abdomen: soft, non tender, no guarding, no rigid, no rebound - Genitourinary Circumcised phallus with small proximal shaft Peyronie's plaque. Normal scrotum and testes. - Rectum Rectum: normal sphincter tone, no masses, other (Prostate enlarged but smooth) - Psychiatric oriented to time, oriented to person, oriented to place, speech is normal, memory intact Assessment and Plan (1) Malignant neoplasm of prostate Status: Acute Code(s): C61 - MALIGNANT NEOPLASM OF PROSTATE SNOMED Code(s): 296511521 Plan: The patient will undergo transrectal ultrasound-guided biopsies of the prostate. The procedure has been reviewed in detail with the patient. He has been made aware of potential risks, which include anesthesia, bleeding, and infection.
[~2023-04-01 10:10] MED LIST changes: +DEXAMETHASONE SOD PHOSPHATE 4 MG/ML 1 ML VIAL IV ONE; +GENTAMICIN IVPB PRN; +HYDROmorphone 0.5 MG/0.5 ML SYRINGE IVP PRN; +LIDOCAINE 1% (10MG/ML) FOR IV START INTRADERMA PRN; +MIDAZOLAM 2 MG/2 ML VIAL IV PRN; +ONDANSETRON 4 MG/2 ML VIAL IVP ONE; +SODIUM CHLORIDE 0.9% IVPB PRN
[2023-04-01 10:57] VITALS: RESP 16; TEMP 97.3
[2023-04-01] MEDS ORDERED: MIDAZOLAM 2 MG/2 ML VIAL ONE (11:21)
[2023-04-01] MEDS ORDERED: fentaNYL (PF) 50 MCG/ML 2 ML AMP ONE (11:21)
[2023-04-01] MEDS ORDERED: PROPOFOL 10 MG/ML 20 ML VIAL IV ONE (11:21)
--- NOTE | 2023-04-01 11:55 | P.OP ---
Date of Procedure: 04/01/23 Preoperative Diagnosis: Prostate cancer Postoperative Diagnosis: Same Procedure(s) Performed: Transrectal ultrasound, prostate biopsy Implants: None Anesthesia: MAC Surgeon: Jose Guadalupe Goodman Estimated Blood Loss (ml): 1 Pathology: other (Prostate biopsies) Condition: stable Disposition: PACU Indications for Procedure: The patient is a 68-year-old white male admitted with Mark 6 prostate cancer in April 2018. Alternative treatment options were reviewed, and he has elected to proceed with active surveillance rather than active treatment. Repeat prostate biopsies in November 2020 showed no evidence of malignancy. Prostate volume at that time was 76 mL. MRI in January 2022 showed a prostate volume of 85 mL with no suspicious lesions. He now comes for a prostate ultrasound with biopsies. Description of Procedure: The patient was taken to the operating room and placed in the left lateral decubitus position. The [employer] transrectal ultrasound probe was placed intrarectally. . The prostate was imaged in both the axial and sagittal planes. prostate measured 104 grams. Using the Biopsy gun, 12 biopsies of the peripheral zone were obtained utilizing a standard template. Once the procedure was completed, the ultrasound probe was removed. The patient tolerated the procedure well was taken to the recovery room stable condition
[2023-04-01 11:57] VITALS: BP 112/73; PULSE 57
== END 2023-04-01 12:22 | disposition home or self-care (01) ==
LOC: OR 10:10
PROVIDERS: ATTEND Urology
DX: C61 Malignant neoplasm of prostate (principal); I10 Essential (primary) hypertension; E78.5 Hyperlipidemia, unspecified; Z85.46 Personal history of malignant neoplasm of prostate; Z90.89 Acquired absence of other organs; Z79.890 Hormone replacement therapy; Z79.899 Other long term (current) drug therapy; Z88.0 Allergy status to penicillin
CPT/HCPCS: 55700; 88344; 88305; J2250; J1580; J1100; J0690; J2405; J3010; J2704

== ENCOUNTER → 2023-07-04 | Outpatient (CLI) | payer BC ==
[2023-07-04 11:49] LABS: Basophils # (A) 0.04 X 10*3/uL (0.00-0.10); Basophils % (A) 0.7 %; Eosinophils # (A) 0.22 X 10*3/uL (0.04-0.35); HCT 44.8 % (39.6-50.0); HGB 15.4 g/dL (13.0-17.0); Lymphocytes # (A) 1.64 X 10*3/uL (0.90-5.00); Lymphocytes % (A) 29.8 %; MCH 31.8 pg (27.0-32.0); MCHC 34.4 g/dL (32.0-37.0); MCV 92.4 FL (80.0-97.0); Mean Platelet Volume 11.1 FL (9.5-12.2); Monocytes # (A) 0.62 X 10*3/uL (0.20-1.00); Monocytes % (A) 11.3 %; NRBC Per 100 WBC 0 X 10*3/uL (0.00-0.01); Neutrophils # (A) 2.96 X 10*3/uL (1.80-7.70); Neutrophils % (A) 53.8 %; Platelet Count 185 X 10*3/uL (140-440); RBC 4.85 X 10*6/uL (4.40-5.60); RDW 12.3 % (11.5-14.5)
[2023-07-04 13:52] LABS: BUN/Creat Ratio 24.58 Ratio (12.00-20.00); Blood Urea Nitrogen 29.5 mg/dL (9.0-27.0); Calcium 9.5 mg/dL (8.7-10.3); Carbon Dioxide 22.3 mmol/L (21.6-31.8); Chloride 107 mmol/L (96-109); Glucose 91 mg/dL (70-110); Potassium 4.7 mmol/L (3.5-5.5); Sodium 140 mmol/L (135-145)
== END | disposition home or self-care (01) ==
LOC: LABPAT 07:14
PROVIDERS: ATTEND Urology
DX: Z01.812 Encounter for preprocedural laboratory examination (principal); C61 Malignant neoplasm of prostate
CPT/HCPCS: 36415; 80048; 85025; 86850; 86900; 86901

== ENCOUNTER 2023-07-11 09:12 | Day surgery (SDC) | payer BC ==
--- NOTE | 2023-07-10 20:43 | P.GSHP ---
History of Present Illness H&P Date: 07/10/23 Chief Complaint: Prostate cancer The patient is a 68-year-old white male diagnosed with prostate cancer in April 2018. His PSA level at that time was 3.97. 2 out of 12 biopsies showed Mark 6 adenocarcinoma. Treatment options were reviewed and he elected to proceed with active surveillance. Biopsies in November 2020 showed no evidence of malignancy. An MRI in January 2022 showed a prostate volume of 85 cc with no suspicious lesions. The PSA level in September 2022 was 4.80. He recently underwent transrectal ultrasound with biopsies. The prostate volume was measured at 104 cc. 3 of 12 biopsies showed evidence of malignancy. A small focus of Mark 6 adenocarcinoma was found within the right peripheral zone at the mid gland. Biopsies of the right lateral base and right lateral mid showed Mark 7 adenocarcinoma (3+4). After reviewing alternative options, including continued active surveillance, patient has opted to undergo a left nerve sparing robotic assisted laparoscopic prostatectomy (RALP). He has a right inguinal hernia which will be repaired by Dr. Harris. - Cardiovascular Cardiovascular: Reports high blood pressure - Genitourinary (Male) Genitourinary: Reports nocturia Past Medical History Past Medical History: Eye Disorder, Hyperlipidemia, Hypertension, Prostate Disorder, Thyroid Disorder Additional Past Medical History / Comment(s): GLAUCOMA LT EYE R/T INJURY, hypothyroidism, prostate cancer 04/07, bilat. inguinal hernia History of Any Multi-Drug Resistant Organisms: None Reported Past Surgical History: Orthopedic Surgery, Tonsillectomy Additional Past Surgical History / Comment(s): COLONOSCOPY, Lt. knee arthrosopy, prostate biopsy 04/07 Past Anesthesia/Blood Transfusion Reactions: No Reported Reaction, Motion Sickness Smoking Status: Never smoker - Past Family History Father Family Medical History: Coronary Artery Disease (CAD), Diabetes Mellitus Additional Family Medical History / Comment(s): age 45 Medications and Allergies Home Medications Medication Instructions Recorded Confirmed Type Brimonidine Tartrate/Timolol 1 drop LEFT EYE Q12HR 09/27/14 07/08/23 History [Combigan 0.2%/0.5% Ophth Soln] Folic Acid 1 mg PO DAILY 09/27/14 07/08/23 History Latanoprost 1 drop BOTH EYES HS 09/27/14 07/08/23 History Levothyroxine Sodium [Synthroid] 125 mcg PO QAM 09/27/14 07/08/23 History Simvastatin 40 mg PO HS 09/27/14 07/08/23 History Ubidecarenone [Co Q-10] 300 mg PO BID 09/27/14 07/08/23 History lisinopriL [Lisinopril] 10 mg PO QAM 09/27/14 07/08/23 History Cholecalciferol [Vitamin D3] 1,000 unit PO DAILY 09/29/14 07/08/23 History Naproxen Sodium [Aleve] 220 mg PO DAILY PRN 07/08/23 07/08/23 History Allergies Allergy/AdvReac Type Severity Reaction Status Date / Time aspirin Allergy Unknown Verified 07/08/23 12:42 Penicillins Allergy Swelling Verified 07/08/23 12:41 sulfite Allergy POSITIVE Verified 07/08/23 12:41 ON ALLERGY TEST Surgical - Exam - General well developed, well nourished, no distress - Respiratory normal respiratory effort - Abdomen Abdomen: soft, non tender, no guarding, no rigid, no rebound Hernia: inguinal - Genitourinary Circumcised phallus with small proximal shaft plaque. Normal scrotum and testes. - Rectum Rectum: normal sphincter tone, no masses, other (Prostate enlarged but smooth) - Psychiatric oriented to time, oriented to person, oriented to place, speech is normal, memory intact Assessment and Plan (1) Malignant neoplasm of prostate Status: Acute Code(s): C61 - MALIGNANT NEOPLASM OF PROSTATE SNOMED Code(s): 714728368 Plan: Robotic-assisted laparoscopic prostatectomy. The left neurovascular bundle will be preserved. The procedure has been reviewed in detail with the patient. He is aware of potential risks, which include anesthesia, bleeding, infection, intestinal injury (which may require a colostomy), ureteral injury, swelling of the penis post-operatively, bladder neck contracture, urethral stricture, lymphocele, post-operative ileus, thrombophlebitis, wound separation, and possible urinary fistula. In addition, I went into great detail concerning the possibility of postop urinary incontinence, which may fail to resolve. The patient has also been advised of the possibility of treatment failure, and the possible need for adjuvant therapy. He understands the possibility of postoperative erectile dysfunction despite preservation of the left neurovascular bundle.
[~2023-07-11 09:12] MED LIST changes: +ACETAMINOPHEN TAB 500 MG TAB PO PRN; -GENTAMICIN IVPB PRN; +HEPARIN SODIUM,PORCINE 5,000 UNIT/ML 1 ML VIAL SQ PRN; -LACTATED RINGERS 1,000 ML IV SCH; -SODIUM CHLORIDE 0.9% IVPB PRN
--- NOTE | 2023-07-11 10:21 | P.GSHP ---
History of Present Illness H&P Date: 07/11/23 Chief Complaint: Bilateral inguinal hernia 68-year-old male seen in the office in May. Patient scheduled today for laparoscopic prostatectomy. Patient was found by his urologist to have a hernia. On exam in the office was found to have small bilateral inguinal hernia . Patient relatively asymptomatic. Past Medical History Past Medical History: Eye Disorder, Hyperlipidemia, Hypertension, Prostate Disorder, Thyroid Disorder Additional Past Medical History / Comment(s): GLAUCOMA LT EYE R/T INJURY, hypothyroidism, prostate cancer 04/07, bilat. inguinal hernia History of Any Multi-Drug Resistant Organisms: None Reported Past Surgical History: Orthopedic Surgery, Tonsillectomy Additional Past Surgical History / Comment(s): COLONOSCOPY, Lt. knee arthrosopy, prostate biopsy 04/07 Past Anesthesia/Blood Transfusion Reactions: No Reported Reaction, Motion Sickness Smoking Status: Never smoker - Past Family History Father Family Medical History: Coronary Artery Disease (CAD), Diabetes Mellitus Additional Family Medical History / Comment(s): age 45 Medications and Allergies Home Medications Medication Instructions Recorded Confirmed Type Brimonidine Tartrate/Timolol 1 drop LEFT EYE Q12HR 09/27/14 07/11/23 History [Combigan 0.2%/0.5% Ophth Soln] Folic Acid 1 mg PO DAILY 09/27/14 07/11/23 History Latanoprost 1 drop BOTH EYES HS 09/27/14 07/11/23 History Levothyroxine Sodium [Synthroid] 125 mcg PO QAM 09/27/14 07/11/23 History Simvastatin 40 mg PO HS 09/27/14 07/11/23 History Ubidecarenone [Co Q-10] 300 mg PO BID 09/27/14 07/11/23 History lisinopriL [Lisinopril] 10 mg PO QAM 09/27/14 07/11/23 History Cholecalciferol [Vitamin D3] 1,000 unit PO DAILY 09/29/14 07/11/23 History Naproxen Sodium [Aleve] 220 mg PO DAILY PRN 07/08/23 07/11/23 History Allergies Allergy/AdvReac Type Severity Reaction Status Date / Time aspirin Allergy Unknown Verified 07/11/23 09:43 Penicillins Allergy Swelling Verified 07/11/23 09:43 shellfish derived [Shrimp] Allergy Anaphylaxis Verified 07/11/23 09:43 sulfite Allergy POSITIVE Verified 07/08/23 12:41 ON ALLERGY TEST Surgical - Exam Vital Signs Temp Pulse Resp BP Pulse Ox 97.1 F L 60 18 135/82 97 07/11/23 09:47 07/11/23 09:47 07/11/23 09:47 07/11/23 09:47 07/11/23 09:47 Physical exam: General: Well-developed, well-nourished HEENT: Normocephalic, sclerae nonicteric Abdomen: Nontender, nondistended, small reducible bilateral inguinal hernia Extremities: No edema Neuro: Alert and oriented Assessment and Plan (1) Bilateral inguinal hernia Narrative/Plan: 68-year-old male with bilateral inguinal hernia. Will proceed with laparoscopic da Desire assisted repair of bilateral inguinal hernia with mesh, possible open. This will be performed in conjunction with urology. Risks of bleeding, in fection, recurrence, seroma, bladder and bowel injury, numbness, nerve injury, conversion to an open procedure were discussed with the patient. The patient understands and wishes to proceed. Current Visit: Yes Status: Acute Code(s): K40.20 - BI INGUINAL HERNIA, W/O OBST OR GANGRENE, NOT SPCF RECUR SNOMED Code(s): 81020873
[2023-07-11] MEDS: LACTATED RINGERS 1,000 ML IV SCH (10:32)
[2023-07-11] MEDS ORDERED: KETAMINE HCL IN 0.9 % NACL 50 MG/5 ML SYRINGE ONE (11:05)
[2023-07-11] MEDS ORDERED: MIDAZOLAM 2 MG/2 ML VIAL ONE (11:05)
[2023-07-11] MEDS ORDERED: HYDROmorphone (PF) 1 MG/ML ONE (11:05)
[2023-07-11] MEDS ORDERED: ONDANSETRON 4 MG/2 ML VIAL ONE (11:05)
[2023-07-11] MEDS ORDERED: NEOSTIGMINE 1 MG/ML 10 ML VIAL ONE (11:05)
[2023-07-11] MEDS ORDERED: PROPOFOL 10 MG/ML 20 ML VIAL IV ONE (11:05)
[2023-07-11] MEDS ORDERED: DEXAMETHASONE SOD PHOSPHATE 4 MG/ML 1 ML VIAL ONE (11:05)
[2023-07-11] MEDS ORDERED: SUCCINYLCHOLINE CHLORIDE 200 MG/10 ML VIAL IV ONE (11:05)
[2023-07-11] MEDS ORDERED: SODIUM CHLORIDE 0.9% (PF) 10 ML VIAL ONE (11:05)
[2023-07-11] MEDS ORDERED: GLYCOPYRROLATE 0.2 MG/ML 2 ML VIAL ONE (11:05)
[2023-07-11] MEDS ORDERED: ePHEDrine 50 MG/ML 1 ML VIAL ONE (11:05)
[2023-07-11] MEDS ORDERED: fentaNYL (PF) 50 MCG/ML 2 ML AMP ONE (11:05)
[2023-07-11] MEDS ORDERED: ROPIVACAINE 5 MG/ML 30 ML VIAL ONE (11:05)
[2023-07-11] MEDS ORDERED: LIDOCAINE 1% INJ 10MG/ML (20 ML MDV) ONE (11:05)
[2023-07-11] MEDS ORDERED: ROCURONIUM 10 MG/ML (5 ML VIAL) IV ONE (11:05)
[2023-07-11] MEDS ORDERED: BUPIVACAINE (PF) 0.25% 30 ML VIAL SQ ONE ×2 (12:01→15:15)
--- NOTE | 2023-07-11 15:16 | P.OP ---
Date of Procedure: 07/11/23 Procedure(s) Performed: PREOPERATIVE DIAGNOSIS: Bilateral inguinal hernia POSTOPERATIVE DIAGNOSIS: Same PROCEDURE: Laparoscopic da Desire assisted repair bilateral inguinal hernia with mesh in conjunction with robotic prostatectomy SURGEON: Dr. Harris ANESTHESIA: General OPERATIVE PROCEDURE DETAILS: Patient was brought to the operating room by urology. Urology and I discussed the appropriate location for the peritoneal incision. The initial portion of the procedure will be dictated separately by the urologic team. After the prostatectomy took place I took over the robotic console. The hernias had been reduced. The peritoneum was further dissected so we had adequate space for our mesh. Patient had evidence of bilateral indirect inguinal hernia right side was greater in size than left. Once we had adequate space 2 separate 10 x 15 cm ProGrip mesh were placed overlapping in the retropubic location. These covered all potential hernia sites nicely. The medial aspect of both portions of mesh were sutured to Luis A's ligament and then in the midline using a running absorbable 3 OV lock suture. The large peritoneal incision was then closed using 4 separate 2-0 absorbable V-Loc sutures. The redundant hernia sac on the right-hand side was incorporated to the peritoneal closure to prevent future recurrence. The remainder the procedure will be dictated by urology. TYPE OF MESH USED: 15 x 10 cm ProGrip LOCATION OF MESH: Preperitoneal FIXATION: Absorbable 3 OV lock PREOPERATIVE DISCUSSION ON SMOKING CESSASTION: Yes PREOPERATIVE DISCUSSION ON MORBID OBESITY: Yes PREOPERATIVE DISCUSSION ON APPROPRIATE USE OF NARCOTIC USE: Yes PREOPERATIVE EDUCATION: Multi Modal, Smoking Cessation and Weight Loss with BMI over 35. DISPOSITION: Stable to recovery room
[2023-07-11] MEDS ORDERED: ONDANSETRON 4 MG/2 ML VIAL IVP PRN (15:24)
[2023-07-11] MEDS ORDERED: KETOROLAC 15 MG/ML 1 ML VIAL IVP PRN (15:24)
[2023-07-11] MEDS ORDERED: HYDROmorphone 1 MG/ML 1 ML SYRINGE IVP PRN (15:24)
--- NOTE | 2023-07-11 15:27 | P.OP ---
Date of Procedure: 07/11/23 Preoperative Diagnosis: Adenocarcinoma of the prostate Postoperative Diagnosis: Same Procedure(s) Performed: Bilateral nerve sparing robotic assisted laparoscopic prostatectomy (RALP) Anesthesia: FELIXA Surgeon: Raphael Saeed Estimated Blood Loss (ml): 50 IV fluids (ml): 1,100 Pathology: other (Prostate) Condition: stable Disposition: PACU Indications for Procedure: The patient is a 68-year-old white male diagnosed with prostate cancer in April 2018. His PSA level at that time was 3.97. 2 out of 12 biopsies showed [place] 6 adenocarcinoma. Treatment options were reviewed and he elected to proceed with active surveillance. Biopsies in November 2020 showed no evidence of malignancy. An MRI in January 2022 showed a prostate volume of 85 cc with no suspicious lesions. The PSA level in September 2022 was 4.80. He recently underwent transrectal ultrasound with biopsies. The prostate volume was measured at 104 cc. 3 of 12 biopsies showed evidence of malignancy. A small focus of Mark 6 adenocarcinoma was found within the right peripheral zone at the mid gland. Biopsies of the right lateral base and right lateral mid showed Mark 7 adenocarcinoma (3+4). After reviewing alternative options, including continued active surveillance, patient has opted to undergo a left nerve sparing robotic assisted laparoscopic prostatectomy (RALP). He has inguinal hernias which will be repaired by Dr. Harris. Operative Findings: Enlarged prostate. No evidence of extraprostatic disease. Description of Procedure: The patient was taken in the operating room and placed in the supine position. He was carefully positioned on a beanbag for stability. The abdomen and external genitalia were prepped and draped sterilely. A Diaz catheter was inserted. The Veress needle was passed through the anterior abdominal wall immediately cephalad to the umbilicus, and insufflation was performed to a pressure of 20 mm Hg. Once insufflation was performed, the Veress needle was removed and a supraumbilical incision was made, through which an 8 mm camera port was placed. Under camera guidance, 3 8 mm robotic ports were placed, 2 on the left and one on the right. A 12 mm port was placed on the right lateral side for use as an certified medical technician assistant port. A 5 mm port was placed to the right of the camera port for suction. The patient was placed in Trendelenburg position, and docking was then performed to the da Desire system utilizing a 4-arm approach. The abdomen was examined. The peritoneum was incised lateral to the medial umbilical ligaments bilaterally, exposing the pubis. The peritoneum was then i ncised across the midline, allowing the bladder flap to be taken down. This was done widely to allow adequate exposure for Dr. Harris to perform the inguinal hernia repairs. The endopelvic fascia was opened bilaterally, and muscular attachments from the urogenital diaphragm were swept away from the prostate. The vesical neck was incised transversely, down to the lumen. The Diaz catheter was brought out through the anterior vesical neck incision and was used for traction. The posterior aspect of the vesical neck was incised, such that the full-thickness of the vesical neck was divided. The anterior layer of the Denonvilliers fascia was incised, exposing the vas deferens. Each were isolated and divided. Next, each of the seminal vesicles were dissected away from adjacent tissues, and vascular attachments were cauterized and divided. The posterior leaf of Denonvilliers fascia was incised transversely, allowing entry into the plane between the prostate and rectum. With lateral spreading, this plane was developed down to the apex. This exposed the lateral vascular pedicles bilaterally. These were clipped and divided in an antegrade fashion, down to the apex. Electrocautery was used very sparingly to prevent thermal damage to the nerves. The plane of dissection was immediately adjacent to the prostate, allowing preservation of the neurovascular bundles. The remaining apical attachments were swept away from the prostate. The dorsal venous complex was incised, as well as periurethral tissue. At this point, only the urethra remained intact. This was transected immediately distal to the prostatic apex using cold scissors. The specimen was placed within a specimen bag. The dorsal venous complex was sutured using a V-Loc suture in a running fashion. A second V-Loc suture was then used to place the Carroll stitch, incorporating the rhabdosphincter and the edge of Denonvilliers fascia. This allowed the bladder to be taken down to the urethra, leaving the vesical neck immediately adjacent to the urethra. The vesicourethral anastomosis was then performed using a V-Loc suture in a running fashion. After completing the anastomosis, an 18-Belgian Diaz catheter was placed and approximately 150 mL of 0.9 normal saline were instilled into the bladder. No extravasation of irrigant from the vesicourethral anastomosis was noted. Although hemostasis was excellent, Surgicel was placed over the vascular pedicles bilaterally. At this time, Dr. Harris proceeded to perform the hernia repair and reapproximated the peritoneal edges over the mesh. The patient was returned to the supine position. Undocking was performed, and the specimen bag sutures were passed through the camera port. After removing all the ports and allowing all of the CO2 to be released from the peritoneal cavity, the camera port incision was enlarged to allow removal of the surgical specimen. The fascia of this incision was then closed using 0 PDS suture in a running fashion. Each of the skin incisions were then closed using 4-0 Monocryl suture in a subcuticular fashion. Marcaine was injected at each of the incision sites. Dermabond was applied to each incision. The Diaz catheter was connected to gravity drainage. All sponge and needle counts were correct. The patient tolerated the procedure well was taken to the recovery room in stable condition.
[2023-07-11] MEDS ORDERED: fentaNYL (PF) 50 MCG/1 ML VIAL IVP ONE (17:06)
--- NOTE | 2023-07-11 17:26 | P.ANPRN ---
Procedure Note - Anesthesia - Nerve Block Performed Bilateral Erector Spinae Single Time Out Performed: Yes Date of Procedure: 07/11/23 Procedure Start Time: 17:05 Procedure Stop Time: 17:14 Location of Patient: Phase I Indication: Acute Post-Operative Pain, Requested by Surgeon Sedation Type: Sedate with meaningful contact maintained Preparation: Sterile Prep Position: Left Lateral Needle Types: Pajunk Needle Gauge: 21 Ultrasound used to visualize needle placement: Yes Ultrasound used to observe medication spread: Yes Injectate: 0.5% Ropivacaine (see comment for volume) (20 ML + 10 ML ns +4 MG dEXAMETHASONE PER SIDE) Blood Aspirated: No Pain Paresthesia on Injection Noted: No Resistance on Injection: Normal Image Stored and Saved: Yes Events: Uneventful and Well Tolerated
[2023-07-11] MEDS ORDERED: ATORVASTATIN 20 MG TAB PO SCH (21:00)
[2023-07-11] MEDS ORDERED: LATANOPROST 0.005% OPHTH DROPS 2.5 ML BTL BOTH EYES SCH (21:00)
[2023-07-11] MEDS: HEPARIN SODIUM,PORCINE 5,000 UNIT/ML 1 ML VIAL SQ SCH (21:33)
[2023-07-11] MEDS: DEXTROSE 5%-0.45% NACL 1,000 ML IV SCH ×2 (21:34→23:44)
[2023-07-11] MEDS: TIMOLOL 0.5% OPHTH DROPS 5 ML BTL LEFT EYE SCH (23:02)
[2023-07-11] MEDS: BRIMONIDINE TARTRATE 0.2% DROPS 5 ML BTL LEFT EYE SCH (23:02)
[2023-07-12 02:42] VITALS: RESP 16
[2023-07-12] MEDS: LACTATED RINGERS 1,000 ML IV SCH (06:14)
[2023-07-12] MEDS ORDERED: LEVOTHYROXINE 125 MCG TAB PO SCH (06:30)
[2023-07-12] MEDS: DEXTROSE 5%-0.45% NACL 1,000 ML IV SCH ×2 (06:37→11:00)
[2023-07-12] MEDS: ACETAMINOPHEN TAB 325 MG TAB PO PRN ×2 (07:00→12:18)
[2023-07-12 08:36] VITALS: BP 143/80; PULSE 76; TEMP 98.2
[2023-07-12] MEDS ORDERED: lisinopriL 10 MG TAB PO SCH (09:00)
[2023-07-12] MEDS: HEPARIN SODIUM,PORCINE 5,000 UNIT/ML 1 ML VIAL SQ SCH (09:23)
[2023-07-12] MEDS: TIMOLOL 0.5% OPHTH DROPS 5 ML BTL LEFT EYE SCH (09:24)
[2023-07-12] MEDS: BRIMONIDINE TARTRATE 0.2% DROPS 5 ML BTL LEFT EYE SCH (09:24)
--- NOTE | 2023-07-12 12:05 | P.DS ---
Providers Expected date of discharge: 07/12/23 Attending physician: Raphael Saeed Primary care physician: Guillermo Lincoln - Discharge Diagnosis(es) (1) Malignant neoplasm of prostate Current Visit: No Status: Acute Hospital Course: On the day of admission, the patient underwent an uncomplicated robotic assisted laparoscopic prostatectomy with bilateral inguinal hernia repair. The elisabeth operative course was unremarkable. He remained afebrile with stable vital signs postoperatively. On the first postoperative day, he was tolerating diet and reported incisional discomfort is his only complaint. On examination, the abdomen was soft and non-distended. Incisions were clean, dry, and intact. The Diaz catheter was draining clear yellow urine. Procedures: Robotic assisted laparoscopic prostatectomy (RALP) with bilateral inguinal hernia repair July 11, 2023. Patient Condition at Discharge: Good Plan - Discharge Summary Discharge Rx Participant: Yes New Discharge Prescriptions: New Ketorolac [Toradol] 10 mg PO Q6HR PRN #10 tab PRN Reason: Pain Ciprofloxacin HCl [Cipro] 250 mg PO Q12HR #6 tablet No Action Simvastatin 40 mg PO HS Levothyroxine Sodium [Synthroid] 125 mcg PO QAM Latanoprost 1 drop BOTH EYES HS Brimonidine Tartrate/Timolol [Combigan 0.2%/0.5% Ophth Soln] 1 drop LEFT EYE Q12HR lisinopriL [Lisinopril] 10 mg PO QAM Ubidecarenone [Co Q-10] 300 mg PO BID Folic Acid 1 mg PO DAILY Cholecalciferol [Vitamin D3] 1,000 unit PO DAILY Naproxen Sodium [Aleve] 220 mg PO DAILY PRN PRN Reason: Pain Discharge Medication List Brimonidine Tartrate/Timolol [Combigan 0.2%/0.5% Ophth Soln] 1 drop LEFT EYE Q12HR 09/27/14 [History] Folic Acid 1 mg PO DAILY 09/27/14 [History] Latanoprost 1 drop BOTH EYES HS 09/27/14 [History] Levothyroxine Sodium [Synthroid] 125 mcg PO QAM 09/27/14 [History] Simvastatin 40 mg PO HS 09/27/14 [History] Ubidecarenone [Co Q-10] 300 mg PO BID 09/27/14 [History] lisinopriL [Lisinopril] 10 mg PO QAM 09/27/14 [History] Cholecalciferol [Vitamin D3] 1,000 unit PO DAILY 09/29/14 [History] Naproxen Sodium [Aleve] 220 mg PO DAILY PRN 07/08/23 [History] Ciprofloxacin HCl [Cipro] 250 mg PO Q12HR #6 tablet 07/12/23 [Rx] Ketorolac [Toradol] 10 mg PO Q6HR PRN #10 tab 07/12/23 [Rx] Follow up Appointment(s)/Referral(s): Jose J Harris MD [Medical Doctor] - 2 Weeks Raphael Saeed MD [STAFF PHYSICIAN] - 07/21/23 8:50 am Activity/Diet/Wound Care/Special Instructions: Discharge home with Diaz catheter. Instruct patient to use overnight drainage bag as well as urinary leg bag. Okay to shower. Diet as tolerated. No lifting, driving, or strenuous activity. Reassure patient that abdominal wall ecchymosis and penoscrotal swelling are normal. Instruct patient to begin taking antibiotics one day prior to Diaz catheter removal. Discharge Disposition: HOME SELF-CARE
== END 2023-07-12 14:03 | disposition home or self-care (01) ==
LOC: OR 09:12 → 4SSUR 15:20 → OR 07-12 14:03
PROVIDERS: ATTEND Urology
DX: C61 Malignant neoplasm of prostate (principal); K40.20 Bilateral inguinal hernia, without obstruction or gangrene, not specified as recurrent; E03.9 Hypothyroidism, unspecified; E78.5 Hyperlipidemia, unspecified; I10 Essential (primary) hypertension; Z79.890 Hormone replacement therapy; Z85.46 Personal history of malignant neoplasm of prostate; Z88.0 Allergy status to penicillin
CPT/HCPCS: 49650; 64999; 88307; 88309; 55866; C1781; J2250; J0330; J1644 ×2; J1100; J2710; J0690 ×2; J2405; J2001; J3010 ×2; J1170 ×2; J2795; J1885; J2704; J0665

== ENCOUNTER → 2023-08-05 | Outpatient (CLI) | payer BC | END | disposition home or self-care (01) | LOC: LABWHC1 07:05 | PROVIDERS: ATTEND Urology | DX: C61 Malignant neoplasm of prostate (principal) | CPT/HCPCS: 36415; 84153 ==

== ENCOUNTER → 2023-12-05 | Outpatient (CLI) | payer BC | END | disposition home or self-care (01) | LOC: LABWHC1 07:11 | PROVIDERS: ATTEND Urology | DX: C61 Malignant neoplasm of prostate (principal) | CPT/HCPCS: 36415; 84153 ==

== ENCOUNTER 2024-01-01 20:41 | Observation (INO) | payer BC ==
[2024-01-01] MEDS: methylPREDNISolone SOD SUCCI 125 MG/2 ML VIAL IV STA (21:18)
[2024-01-01] MEDS: ONDANSETRON 4 MG/2 ML VIAL IVP STA (21:18)
[2024-01-01] MEDS: diphenhydrAMINE 50 MG/ML 1 ML VIAL IVP STA (21:18)
[2024-01-01] MEDS: FAMOTIDINE 20 MG/2 ML VIAL IV STA (21:19)
[2024-01-01] MEDS: SODIUM CHLORIDE 0.9% 1,000 ML IV ONE ×2 (21:45→22:00)
--- NOTE | 2024-01-01 21:45 | ED ---
Allergic Reaction HPI - General Chief complaint: Allergic Reaction Stated complaint: allergic reaction Time Seen by Provider: 01/01/24 20:57 Source: patient Mode of arrival: wheelchair Limitations: no limitations - History of Present Illness Initial Comments: Patient is a 68-year-old man who presents with complaint that he believes he is having allergic reaction. Patient states that he is taking bowel regimen to have colonoscopy. He took the second dose of medication tonight little before 830. That he then started having some chest tightness he indicates the lower substernal and epigastric area. He began having nausea and vomiting. He noticed a rash and he was feeling weak. They checked the label and found that there were sulfites in the bowel regimen and he states he has had previous reaction to sulfites. MD Complaint: allergic reaction Onset/Timin -: minutes(s) Exposure: medication Symptoms: rash, nausea, vomiting Severity: severe Treatment Prior to Arrival: none Previous Allergy History: none - Related Data Home Medications Medication Instructions Recorded Confirmed Brimonidine Tartrate/Timolol 1 drop LEFT EYE Q12HR 09/27/14 12/30/23 [Combigan 0.2%/0.5% Ophth Soln] Folic Acid 1 mg PO DAILY 09/27/14 12/30/23 Latanoprost 1 drop BOTH EYES HS 09/27/14 12/30/23 Levothyroxine Sodium [Synthroid] 125 mcg PO QAM 09/27/14 12/30/23 Simvastatin 40 mg PO HS 09/27/14 12/30/23 Ubidecarenone [Co Q-10] 300 mg PO BID 09/27/14 12/30/23 lisinopriL [Lisinopril] 10 mg PO QAM 09/27/14 12/30/23 Cholecalciferol [Vitamin D3] 1,000 unit PO DAILY 09/29/14 12/30/23 Allergies Allergy/AdvReac Type Severity Reaction Status Date / Time aspirin Allergy POSTIVE ON Verified 01/01/24 20:46 ALLERGY TEST Penicillins Allergy Swelling Verified 01/01/24 20:46 shellfish derived [Shrimp] Allergy Anaphylaxis Verified 01/01/24 20:46 sulfite Allergy POSITIVE Verified 01/01/24 20:46 ON ALLERGY TEST Review of Systems ROS Statement: Those systems with pertinent positive or pertinent negative responses have been documented in the HPI. ROS Other: All systems not noted in ROS Statement are negative. Constitutional: Denies: fever, weakness Respiratory: Denies: cough, dyspnea Cardiovascular: Reports: chest pain. Denies: palpitations, edema, syncope Gastrointestinal: Reports: abdominal pain, nausea, vomiting. Denies: diarrhea, hematemesis, melena, hematochezia Genitourinary: Denies: dysuria, hematuria Musculoskeletal: Denies: back pain Skin: Denies: rash Neurological: Denies: headache, weakness Past Medical History Past Medical History: Cancer, Eye Disorder, Hyperlipidemia, Hypertension, Thyroid Disorder Additional Past Medical History / Comment(s): GLAUCOMA LT EYE R/T INJURY. PROSTATE CANCER History of Any Multi-Drug Resistant Organisms: None Reported Past Surgical History: Hernia Repair, Orthopedic Surgery, Prostate Surgery, Tonsillectomy Additional Past Surgical History / Comment(s): COLONOSCOPY, PROSTATECTOMY, BILAT INGUINAL HERNIA, LT KNEE SX, Past Anesthesia/Blood Transfusion Reactions: Motion Sickness Past Psychological History: No Psychological Hx Reported Smoking Status: Former smoker - Past Family History Father Family Medical History: Coronary Artery Disease (CAD), Diabetes Mellitus Additional Family Medical History / Comment(s): age 45 General Exam Limitations: no limitations General appearance: alert, in distress Head exam: Present: atraumatic, normocephalic Eye exam: Present: normal appearance. Absent: scleral icterus, conjunctival injection ENT exam: Present: mucous membranes dry Neck exam: Present: normal inspection Respiratory exam: Present: normal lung sounds bilaterally. Absent: respiratory distress, wheezes, rales, rhonchi, stridor, accessory muscle use Cardiovascular Exam: Present: regular rate, normal rhythm, normal heart sounds. Absent: systolic murmur, diastolic murmur, rubs, gallop GI/Abdominal exam: Present: soft. Absent: distended, tenderness, guarding, rebo und, rigid, mass Extremities exam: Present: normal inspection, normal capillary refill. Absent: pedal edema, calf tenderness Back exam: Present: normal inspection. Absent: CVA tenderness (R), CVA tenderness (L) Neurological exam: Present: alert Skin exam: Present: warm, dry, intact, mottled. Absent: rash Course Vital Signs 01/01/24 01/01/24 01/01/24 20:42 21:34 21:36 Temperature 97.8 F Pulse Rate 80 86 90 Respiratory 20 24 22 Rate Blood Pressure 161/111 79/50 74/56 O2 Sat by Pulse 98 94 L 92 L Oximetry 01/01/24 01/01/24 01/01/24 21:45 21:47 21:49 Temperature Pulse Rate 96 84 Respiratory 22 20 18 Rate Blood Pressure 79/54 102/77 O2 Sat by Pulse 93 L 92 L Oximetry 01/01/24 01/01/24 22:30 23:00 Temperature Pulse Rate 86 80 Respiratory 20 17 Rate Blood Pressure 144/113 127/59 O2 Sat by Pulse 95 100 Oximetry Medical Decision Making - Medical Decision Making Patient had chest x-ray that I interpreted as negative for acute infiltrate, pneumothorax, congestive heart failure. The patient had developed severe pain in the lower substernal and epigastric area radiating to his back and abdomen. Given the degree of hypertension that he had on arrival and followed by hypotension, he was sent for CT of the aorta which I interpreted as negative for acute dissection, free abdominal fluid or air. No obstruction. - Lab Data Result diagrams: 01/01/24 21:45 01/01/24 21:45 Lab Results 01/01/24 01/01/24 01/01/24 Range/Units 21:45 21:45 21:45 WBC 6.7 (3.8-10.6) k/uL RBC 5.55 (4.30-5.90) m/uL Hgb 17.5 (13.0-17.5) gm/dL Hct 52.2 (39.0-53.0) % MCV 94.0 (80.0-100.0) fL MCH 31.6 (25.0-35.0) pg MCHC 33.6 (31.0-37.0) g/dL RDW 13.1 (11.5-15.5) % Plt Count 182 (150-450) k/uL MPV 8.7 Neutrophils % (Manual) 17 % Band Neuts % (Manual) 2 % Lymphocytes % (Manual) 72 % Monocytes % (Manual) 3 % Eosinophils % (Manual) 1 % Metamyelocytes % 2 % Myelocytes % 6 % Neutrophils # (Manual) 1.20 L (1.3-7.7) k/uL Lymphocytes # (Manual) 4.82 H (1.0-4.8) k/uL Monocytes # (Manual) 0.20 (0-1.0) k/uL Eosinophils # (Manual) 0.07 (0-0.7) k/uL Metamyelocytes # (Man) 0.13 H (0) k/uL Myelocytes # (Manual) 0.40 H (0) k/uL Nucleated RBCs 0 (0-0) /100 WBC Manual Slide Review Performed Large Platelets Present Polychromasia Present Sodium 140 (137-145) mmol/L Potassium 3.7 (3.5-5.1) mmol/L Chloride 103 (98-107) mmol/L Carbon Dioxide 27 (22-30) mmol/L Anion Gap 10 mmol/L BUN 23 H (9-20) mg/dL Creatinine 1.34 H (0.66-1.25) mg/dL Est GFR (CKD-EPI)AfAm 63 (>60 ml/min/1.73 sqM) Est GFR (CKD-EPI)NonAf 55 (>60 ml/min/1.73 sqM) Glucose 112 H (74-99) mg/dL Calcium 9.6 (8.4-10.2) mg/dL Magnesium 2.1 (1.6-2.3) mg/dL Total Bilirubin 0.8 (0.2-1.3) mg/dL AST 37 (17-59) U/L ALT 26 (4-49) U/L Alkaline Phosphatase 72 (38-126) U/L Troponin I <0.012 (0.000-0.034) ng/mL Total Protein 6.9 (6.3-8.2) g/dL Albumin 4.7 (3.5-5.0) g/dL Amylase 45 (30-110) U/L Lipase 212 (23-300) U/L - EKG Data -: EKG Interpreted by Ia EKG shows normal: sinus rhythm, axis (Normal), intervals (Normal), QRS complexes (Normal), ST-T waves (Normal) Rate: normal (Rate 70 bpm) Interpretation: normal EKG Disposition Clinical Impression: Anaphylaxis Disposition: ADMITTED IP TO THIS [facility] Condition: Fair Referrals: Raphael Saeed MD [Primary Care Provider] - 1-2 days
--- NOTE | 2024-01-01 21:59 | XR ---
EXAMINATION TYPE: XR chest 1V portable DATE OF EXAM: 01/01/2024 9:38 PM CLINICAL INDICATION:Male, 68 years old with history of chest pain. Patient prepared for colonoscopy h ad allergy to sulfite medication. Patient developed nausea and emesis afterwards noted COMPARISON: None TECHNIQUE: XR chest 1V portable Frontal view of the chest. FINDINGS: Poor penetration exam limits evaluation. Lungs/Pleura: Low lung volumes present. There is no evidence of pleural effusion, focal consolidation , or pneumothorax. Pulmonary vascularity: Unremarkable. Heart/mediastinum: Cardiomediastinal silhouette is unremarkable. Musculoskeletal: No acute osseous pathology. IMPRESSION: No acute cardiopulmonary disease/process.
[2024-01-01 22:01] LABS: HCT 52.2 % (39.0-53.0); HGB 17.5 gm/dL (13.0-17.5); MCH 31.6 pg (25.0-35.0); MCHC 33.6 g/dL (31.0-37.0); Mean Platelet Volume 8.7; Platelet Count 182 k/uL (150-450); RBC 5.55 m/uL (4.30-5.90); RDW 13.1 % (11.5-15.5); WBC 6.7 k/uL (3.8-10.6)
[2024-01-01 22:17] LABS: ALT 26 U/L (4-49); AST 37 U/L (17-59); African American GFR (CKD) 63 (>60 ml/min/1.73 sqM); Albumin 4.7 g/dL (3.5-5.0); Alkaline Phosphatase 72 U/L (38-126); Amylase 45 U/L (30-110); Anion Gap 10 mmol/L; Blood Urea Nitrogen 23 mg/dL (9-20); Calcium 9.6 mg/dL (8.4-10.2); Carbon Dioxide 27 mmol/L (22-30); Chloride 103 mmol/L (98-107); Glucose 112 mg/dL (74-99); Lipase 212 U/L (23-300); Magnesium 2.1 mg/dL (1.6-2.3); Non-African American GFR(CKD) 55 (>60 ml/min/1.73 sqM); Potassium 3.7 mmol/L (3.5-5.1); Sodium 140 mmol/L (137-145); Total Bilirubin 0.8 mg/dL (0.2-1.3); Total Protein 6.9 g/dL (6.3-8.2)
--- NOTE | 2024-01-01 22:38 | CT ---
EXAMINATION TYPE: CT angio thor/abd pel aorta DATE OF EXAM: 01/01/2024 COMPARISON: None. HISTORY: Pt. was doing prep for colonoscopy today. Pt. allergic to sulfite which was within prep. Pt. c/o increased N/V. Airway patent CT DLP: 2032.8 mGycm. Automated Exposure Control for Dose Reduction was Utilized. CONTRAST: CTA scan of the thorax, abdomen and pelvis is performed without and with IV Contrast, patient injecte d with 100 mL of Isovue 370. Three-D reconstructed images are created on a independent workstation an d reviewed. FINDINGS: Vascular: No hyperdense material to suggest intramural hematoma. Normal three-vessel origin from aort ic arch. Significant narrowing of the celiac artery at its origin and sagittal image 124. Patent SMA and LORENE. Patent bilateral single renal arteries. Mild peripheral plaque in the infrarenal abdominal a todd with more moderate peripheral plaque in the right common iliac artery no significant stenosis in the iliac or femoral artery branch vessels. No linear hypodensity to suggest dissection. No AAA. LUNGS: Some motion artifact in the lung bases. No concerning masses or focal consolidation. There is no pleural effusion or pneumothorax seen. The tracheobronchial tree is patent. MEDIASTINUM: There are no greater than 1 cm hilar or mediastinal lymph nodes. No cardiomegaly or pe ricardial effusion is seen. Moderate coronary artery calcifications. LIVER/GB: No significant abnormality is appreciated. PANCREAS: No significant abnormality is seen. SPLEEN: No significant abnormality is seen. ADRENALS: No significant abnormality is seen. KIDNEYS: No significant abnormality is seen. BOWEL: No abnormal small or large bowel dilatation. GENITAL ORGANS: Prostate gland is small in size or surgically absent. LYMPH NODES: No greater than 1c m abdominal or pelvic lymph nodes are appreciated. OSSEOUS STRUCTURES: Slight grade 1 anterolisthesis L4 on L5. [id number] disc space narrowing an d vacuum disc phenomenon at the L5-S1 level. Multilevel spurring in the thoracolumbar spine. OTHER: Small to moderate sized right and moderate to large size fat-containing left inguinal hernias . IMPRESSION: 1. No aortic dissection or acute vascular injury. 2. No bowel obstruction. No acute findings clearly identified.
[2024-01-01 22:54] LABS: Band Neutrophils % 2 %; Eosinophils # (M) 0.07 k/uL (0-0.7); Lymphocytes # (M) 4.82 k/uL (1.0-4.8); Metamyelocytes # (M) 0.13 k/uL (0); Metamyelocytes % 2 %; Myelocytes % 6 %; Neutrophils % (M) 17 %; Nucleated Red Blood Cells 0 /100 WBC (0-0); Total Cells Counted 200
[2024-01-01 22:55] LABS: Large Platelets Present; Polychromasia Present
[2024-01-01] MEDS ORDERED: NALOXONE 0.4 MG/ML 1 ML VIAL IV PRN (23:12)
[2024-01-01] MEDS: SODIUM CHLORIDE 0.9% 1,000 ML IV STA (23:28)
[2024-01-01] MEDS: SODIUM CHLORIDE 0.9% 1,000 ML IV SCH (23:32)
[2024-01-02] MEDS: LEVOTHYROXINE 125 MCG TAB PO SCH (06:30)
[2024-01-02 08:30] VITALS: RESP 16; TEMP 99.2
[2024-01-02] MEDS: CHOLECALCIFEROL 25 MCG (1000 IU) TABLET PO SCH (08:42)
[2024-01-02] MEDS: FOLIC ACID 1 MG TAB PO SCH (08:42)
[2024-01-02] MEDS: FAMOTIDINE 20 MG TAB PO SCH (08:42)
[2024-01-02] MEDS: lisinopriL 10 MG TAB PO SCH (08:42)
[2024-01-02] MEDS ORDERED: TIMOLOL 0.5% OPHTH DROPS 5 ML BTL LEFT EYE SCH (09:00)
[2024-01-02] MEDS ORDERED: BRIMONIDINE TARTRATE 0.2% DROPS 5 ML BTL LEFT EYE SCH (09:00)
[2024-01-02 09:18] VITALS: BP 110/60; PULSE 68
--- NOTE | 2024-01-02 09:44 | P.CONS ---
History of Present Illness - Reason for Consult Consult date: 01/02/24 your patient pending endoscopy Requesting physician: Eric Nichols - Chief Complaint Allergic reaction - History of Present Illness This is a pleasant 68 year old male who was scheduled for elective colonoscopy as an outpatient today with Dr. Lopez who started his bowel prep yesterday evening and after two glasses he had an allergic reaction. He states he started having chest tightness, felt that his throat was closing, nausea and vomiting and then developed hives. He came into ED for evaluation.. He was given Epinephrine, benadryl and started on IV steroids. He states he is feeling better and wants to go home. Review of Systems Constitutional: Reports as per HPI Ears, nose, mouth and throat: Reports as per HPI Cardiovascular: Reports chest pain (resolved) Gastrointestinal: Reports nausea (resolved), Reports vomiting Genitourinary: Reports as per HPI Musculoskeletal: Reports as per HPI Integumentary: Reports pruritus, Reports rash Neurological: Reports as per HPI Endocrine: Reports as per HPI Allergic/Immunologic: Reports as per HPI, Reports anaphylaxis Past Medical History Past Medical History: Cancer, Eye Disorder, Hyperlipidemia, Hypertension, Thyroid Disorder Additional Past Medical History / Comment(s): GLAUCOMA LT EYE R/T INJURY. PROSTATE CANCER History of Any Multi-Drug Resistant Organisms: None Reported Past Surgical History: Hernia Repair, Orthopedic Surgery, Prostate Surgery, Tonsillectomy Additional Past Surgical History / Comment(s): COLONOSCOPY, PROSTATECTOMY, BILAT INGUINAL HERNIA, LT KNEE SX, Past Anesthesia/Blood Transfusion Reactions: Motion Sickness Past Psychological History: No Psychological Hx Reported Smoking Status: Former smoker - Past Family History Father Family Medical History: Coronary Artery Disease (CAD), Diabetes Mellitus Additional Family Medical History / Comment(s): age 45 Medications and Allergies Home Medications Medication Instructions Recorded Confirmed Type Brimonidine Tartrate/Timolol 1 drop LEFT EYE Q12HR 09/27/14 12/30/23 History [Combigan 0.2%/0.5% [facility] Soln] Folic Acid 1 mg PO DAILY 09/27/14 12/30/23 History Latanoprost [Latanoprost 0.005%] 1 drop BOTH EYES HS 09/27/14 12/30/23 History Levothyroxine Sodium [Synthroid] 125 mcg PO QAM 09/27/14 12/30/23 History Simvastatin 40 mg PO HS 09/27/14 12/30/23 History Ubidecarenone [Co Q-10] 300 mg PO BID 09/27/14 12/30/23 History lisinopriL [Lisinopril] 10 mg PO QAM 09/27/14 12/30/23 History Cholecalciferol [Vitamin D3 (25 1,000 unit PO DAILY 09/29/14 12/30/23 History Mcg = 1000 Iu)] EPINEPHrine - Anaphylaxis Kit 1 mg IM ONCE PRN #1 kit 01/02/24 Rx [Adrenalin - Anaphylaxis Kit] Famotidine [Pepcid] 20 mg PO BID 15 Days #30 tab 01/02/24 Rx Allergies Allergy/AdvReac Type Severity Reaction Status Date / Time aspirin Allergy POSTIVE ON Verified 01/01/24 20:46 ALLERGY TEST Penicillins Allergy Swelling Verified 01/01/24 20:46 shellfish derived [Shrimp] Allergy Anaphylaxis Verified 01/01/24 20:46 sulfite Allergy POSITIVE Verified 01/01/24 20:46 ON ALLERGY TEST Physical Exam Vitals: Vital Signs Temp Pulse Resp BP Pulse Ox 01/02/24 06:00 71 18 109/67 95 01/02/24 04:00 80 18 124/74 98 01/02/24 02:00 86 18 117/69 95 01/02/24 00:34 92 18 129/80 98 01/01/24 23:00 80 17 127/59 100 01/01/24 22:30 86 20 144/113 95 01/01/24 21:49 84 18 102/77 92 L 01/01/24 21:47 96 20 79/54 93 L 01/01/24 21:45 22 01/01/24 21:36 90 22 74/56 92 L 01/01/24 21:34 86 24 79/50 94 L 01/01/24 20:42 97.8 F 80 20 161/111 98 Intake and Output 01/01/24 01/01/24 01/02/24 14:59 22:59 06:59 Other: Weight 104.326 kg General appearance: The patient is alert, oriented, appears in no acute distress. HET: Head is normocephalic and atraumatic. Conjunctiva pink. Sclera anicteric. Neck: Supple without lymphadenopathy. Trachea midline. Heart: Regular. Lungs: Equal expansion, normal respiratory effort. Abdomen: Soft, nontender, nondistended. Skin: No rashes. No jaundice. Extremities: Normal skin color and turgor. No pedal edema. Neurological: No focal deficits. Alert and oriented x3. Results CBC & Chem 7: 01/01/24 21:45 01/01/24 21:45 Labs: Abnormal Lab Results - Last 24 Hours (Table) 01/01/24 01/01/24 Range/Units 21:45 21:45 Neutrophils # (Manual) 1.20 L (1.3-7.7) k/uL Lymphocytes # (Manual) 4.82 H (1.0-4.8) k/uL Metamyelocytes # (Man) 0.13 H (0) k/uL Myelocytes # (Manual) 0.40 H (0) k/uL BUN 23 H (9-20) mg/dL Creatinine 1.34 H (0.66-1.25) mg/dL Glucose 112 H (74-99) mg/dL Assessment and Plan (1) Anaphylaxis Narrative/Plan: Patient was prepping for elective colonoscopy with bowel prep, report sulfite allergy and states he believes he had allergic reaction to bowel prep. Treated in ER for anaphylaxix. Colonoscopy cancelled. Will reschedule as an outpatient with a different bowel prep. Current Visit: Yes Status: Acute Code(s): T78.2XXA - ANAPHYLACTIC SHOCK, UNSPECIFIED, INITIAL ENCOUNTER SNOMED Code(s): 74990357 Plan: 1. Continue symptomatic and supportive care 2. Outpatient colonoscopy cancelled 3. Rest of medical care per primary medical team 4.. GI officew ill contact patient to reschedule colonoscocpy with another bowel prep Thank you for this consultation, patient is cleared from gastroenterology for discharge. We will sign off Dr. Carlee Lopez I agree with the dictator's note, documented as a scribe by Jaja Lewis.
--- NOTE | 2024-01-02 15:51 | P.HPIM ---
History of Present Illness H&P Date: 01/02/24 This is a Very pleasant 68-year-old male who presented to the emergency department Last night shortly after starting his GoLYTELY colonoscopy prep. Patient reports he drank less than 16 ounces of it and started feeling symptoms of increased shortness of breath, diaphoresis, palpitations and went looked at the GoLYTELY bottle and noted that it was sulfate derivative of which she is ALLERGIC to sulfites. Patient had his bring him to the emergency department for further evaluation. Patient Reports he follows with Dr. Guillermo Lincoln as primary care provider as well as Dr. Saeed urology in the outpatient setting with a past medical history of Prostate cancer with prostatectomy, hyperlipidemia, hypertension, thyroid disorder. Patient reports he had been having some increased bleeding from the rectum noted that was bright red and had been scheduled to undergo colonoscopy with Dr. Lopez. Patient reports his previous colonoscopy was negative. In the emergency department EKG was obtained showing a sinus rhythm with 70 heart rateWith a normal QTC, chest x-ray showed no acute cardiopulmonary process, CT angiogram ThoracicWas performed showing no aortic dissection or acute vascular injury, no bowel obstruction and no Acute findings clearly identified.Patient was admitted to internal medicine with GI On consult. Patient was started on gentle IV hydration along with a fluid bolus, given a dose of IV steroids 125 mg and also Received a dose of epinephrine IM as well as given Benadryl and monitored overnight. Patient on exam this morning doing relatively well and reports symptoms have completely resolved. Patient is on room air and denies any chest pain or shortness of breath or palpitations. at the bedside with questions and concerns were answered. Patient will l ikely be discharged today as patient has been cleared by GI recommended outpatient follow-up. Review Of Systems: Constitutional: No fever, no chills, no night sweats. No weight change. No weakness, fatigue or lethargy. No daytime sleepiness. EENT: No headache. No blurred vision or double vision, no loss of vision. No loss of Hearing, no ringing in the ears, no dizziness. No nasal drainage or congestion. No epistaxis. No sore throat. Lungs: Reports initially had shortness of breath With difficulty in breathing That has resolved, cough, no sputum production. No wheezing. Cardiovascular: Reports of chest pain With palpitations prior to ED arrival, resolved, no lower extremity edema. Reports of palpitations That is resolved. No paroxysmal nocturnal dyspnea. No orthopnea. No lightheadedness or dizziness. No syncopal episodes. Abdominal: No abdominal pain. Reports of nausea And vomiting That has resolved. No diarrhea. No constipation. No bloody or tarry stools.. No loss of appetite. Genitourinary: No dysuria, increased frequency, urgency. No urinary retention. Musculoskeletal: No myalgias. No muscle weakness, no gait dysfunction, no frequent falls. No back pain. No neck pain. Integumentary: No wounds, no lesions. No rash or pruritus. No unusual bruising. No change in hair or nails. Neurologic: No aphasia. No facial droop. No change in mentation. No head injury. No headache. No paralysis. No paresthesia. Psychiatric: No depression. No anxiety. No mood swings. Endocrine: No abnormal blood sugars. No weight change. No excessive sweating or thirst. No cold intolerance. PHYSICAL EXAMINATION: GENERAL: The patient is alert and oriented x4, Well developed, well nourished. Obese HEENT: Pupils are round and equally reacting to light. EOMI. no scleral icterus. No conjunctival pallor. Normocephalic, atraumatic. No pharyngeal erythema. No thyromegaly. Oral mucosa is moist, no tongue swelling noted, patent airway CARDIOVASCULAR: S1 and S2 muffled PULMONARY: diminished breath sounds bilaterally with no wheezing or rhonchi noted. ABDOMEN: soft. Nontender on exam. obese. non-distended, normoactive bowel sounds. No palpable organomegaly. MUSCULOSKELETAL: No joint swelling or deformity. EXTREMITIES: No cyanosis, clubbing, or pedal edema. NEUROLOGICAL: Gross neurological examination did not reveal any focal deficits. SKIN: No rashes. 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 Saeed outpatient Obesity with a BMI of GI prophylaxis DVT prophylaxis Full code Plan: Recommend to continue with current medications and management With GI following. Patient was monitored overnight in the emergency department and reevaluated by GI this morning and has cleared the patient for discharge Patient received a dose of epinephrine IM along with Solu-Medrol and Benadryl showing significant improvements Patient will follow-up with GI outpatient in approximately 4-6 weeks. Discussed the importance of carefully reading the labels as the GoLYTELY prep was sulfates and he is ALLERGIC. Prescription provided for epi-pens and discussed with at the bedside as they have multiple homes and travel frequently and will provide with refills. Pharmacy called to confirm they can accommodate after insurance verification and the patient and are agreeable to pay [id number] for extra EpiPen kits Patient instructed and encouraged to call 911 or report to the nearest emergency department if experiencing any symptoms such as chest pain, shortness of breath, palpitations, difficulty in breathing, swelling of the throat or tongue. Patient verbalized understanding Patient is also been instructed to follow-up with primary care provider this week and has been cleared. Please refer to other consultation notes as well as ER documentation for further HPI. Dictation was documented with [employer] software. Please excuse any grammatical errors and documentation. The impression and plan of care has been dictated by Deepa Nichols, nurse practitioner as directed. Ruddy Johnson MD I have performed a history and examination and MDM of this patient, discussed the same with the dictator, and agree with the dictator's assessment and plan as written ,documented as a scribe. Based on total visit time, I have performed more than 50% of the visit. Any additional findings or plans will be noted. Past Medical History Past Medical History: Cancer, Eye Disorder, Hyperlipidemia, Hypertension, Thyroid Disorder Additional Past Medical History / Comment(s): GLAUCOMA LT EYE R/T INJURY. PROSTATE CANCER History of Any Multi-Drug Resistant Organisms: None Reported Past Surgical History: Hernia Repair, Orthopedic Surgery, Prostate Surgery, Tonsillectomy Additional Past Surgical History / Comment(s): COLONOSCOPY, PROSTATECTOMY, BILAT INGUINAL HERNIA, LT KNEE SX, Past Anesthesia/Blood Transfusion Reactions: Motion Sickness Past Psychological History: No Psychological Hx Reported Smoking Status: Former smoker - Past Family History Father Family Medical History: Coronary Artery Disease (CAD), Diabetes Mellitus Additional Family Medical History / Comment(s): age 45 Medications and Allergies Home Medications Medication Instructions Recorded Confirmed Type Brimonidine Tartrate/Timolol 1 drop LEFT EYE Q12HR 09/27/28 12/ History [Combigan 0.2%/0.5% Ophth Soln] Folic Acid 1 mg PO DAILY 09/27/14 12/30/23 History Latanoprost [Latanoprost 0.005%] 1 drop BOTH EYES HS 09/27/14 12/30/23 History Levothyroxine Sodium [Synthroid] 125 mcg PO QAM 09/27/14 12/30/23 History Simvastatin 40 mg PO HS 09/27/14 12/30/23 History Ubidecarenone [Co Q-10] 300 mg PO BID 09/27/14 12/30/23 History lisinopriL [Lisinopril] 10 mg PO QAM 09/27/14 12/30/23 History Cholecalciferol [Vitamin D3 (25 1,000 unit PO DAILY 09/29/14 12/30/23 History Mcg = 1000 Iu)] EPINEPHrine (Auto Inject) [Epipen] 0.3 mg IM ONCE PRN 1 Days #4 each 01/02/24 Rx Famotidine [Pepcid] 20 mg PO BID 15 Days #30 tab 01/02/24 Rx Allergies Allergy/AdvReac Type Severity Reaction Status Date / Time aspirin Allergy POSTIVE ON Verified 01/01/24 20:46 ALLERGY TEST Penicillins Allergy Swelling Verified 01/01/24 20:46 shellfish derived [Shrimp] Allergy Anaphylaxis Verified 01/01/24 20:46 sulfite Allergy POSITIVE Verified 01/01/24 20:46 ON ALLERGY TEST Physical Exam Vitals: Vital Signs Temp Pulse Resp BP Pulse Ox 01/02/24 08:27 99.2 F 69 16 109/60 01/02/24 06:00 71 18 109/67 95 01/02/24 04:00 80 18 124/74 98 01/02/24 02:00 86 18 117/69 95 01/02/24 00:34 92 18 129/80 98 01/01/24 23:00 80 17 127/59 100 01/01/24 22:30 86 20 144/113 95 01/01/24 21:49 84 18 102/77 92 L 01/01/24 21:47 96 20 79/54 93 L 01/01/24 21:45 22 01/01/24 21:36 90 22 74/56 92 L 01/01/24 21:34 86 24 79/50 94 L 01/01/24 20:42 97.8 F 80 20 161/111 98 Intake and Output 01/01/24 01/02/24 01/02/24 22:59 06:59 14:59 Other: Weight 104.326 kg Results CBC & Chem 7: 01/01/24 21:45 01/01/24 21:45 Labs: Abnormal Lab Results - Last 24 Hours (Table) 01/01/24 01/01/24 Range/Units 21:45 21:45 Neutrophils # (Manual) 1.20 L (1.3-7.7) k/uL Lymphocytes # (Manual) 4.82 H (1.0-4.8) k/uL Metamyelocytes # (Man) 0.13 H (0) k/uL Myelocytes # (Manual) 0.40 H (0) k/uL BUN 23 H (9-20) mg/dL Creatinine 1.34 H (0.66-1.25) mg/dL Glucose 112 H (74-99) mg/dL Thrombosis Risk Factor Assmnt - DVT/VTE Prophylaxis DVT/VTE Prophylaxis: Pharmacologic Prophylaxis ordered Assessment and Plan Time with Patient: Greater than 30
--- NOTE | 2024-01-02 15:56 | P.DS ---
Providers Date of admission: 01/01/24 23:14 Expected date of discharge: 01/02/24 Attending physician: Wesley Ascencio Consults: 01/01/24 23:12 Consult Physician Routine Consulting Provider: Guillermo Lincoln Consult Reason/Comments: your patient. 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 Saeed outpatient Obesity with a BMI of GI prophylaxis DVT prophylaxis Full code Discharge disposition Patient is being discharged in a stable condition with guarded prognosis to home. Patient will follow-up with Dr. Guillermo Lincoln in the outpatient setting upon discharge. Patient is to continue with Close outpatient follow-up with GI in 4-6 weeks as schedule to discuss colonoscopy. Total time taken is greater than 35 minutes. Hospital course This is a 68-year-old male who was recently admitted With concerns of shortness of breath, chest pain, diaphoresis with nausea and vomiting with concerns of possible anaphylaxis. Patient reports he had been started GoLYTELY prep for colonoscopy with GI and started experiencing the symptoms and had his bring him to the emergency department for further evaluation. They looked at the noted the GoLYTELY prep was with sulfates and he is ALLERGIC. Patient was given Benadryl along with steroid IV as well as IM showing significant improvement and symptoms have resolved. Patient was evaluated again by GI with Dr. Lopez and has been instructed to follow-up outpatient and will discuss when to have colonoscopy scheduled. Patient reports to feeling well and would like to go home. Please refer to the consultation notes for further HPI. Patient is med ically stable and has been instructed to follow-up with primary care provider. Currently no reports of chest pain, shortness of breath, or palpitations. Patient is afebrile. No reports of nausea or vomiting and patient is tolerating diet. Patient will be Discharged home today. 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 Physical exam: Gen: This is a 68-year-old male who is awake and alert and oriented 3, well- developed, well-nourished, obese HEENT: Head is atraumatic, normocephalic. Pupils equal, round. Sclerae is anicteric. NECK: Supple. No JVD. No lymphadenopathy. No thyromegaly. LUNGS: Clear to auscultation. No wheezes or rhonchi. No intercostal retractions. HEART: S1, S2 muffled ABDOMEN: Soft. Obese. Bowel sounds are present. No masses. No tenderness. EXTREMITIES: No pedal edema. No calf tenderness. NEUROLOGICAL: Patient is awake, alert and oriented x3. Cranial nerves 2 through 12 are grossly intact. Please refer to medication reconciliation sheet for a list of medications. The impression and plan of care has been dictated by Deepa Nichols, Nurse Practitioner as directed. Ruddy Johnson MD I have performed a history and examination and MDM of this patient, discussed the same with the dictator, and agree with the dictator's assessment and plan as written ,documented as a scribe. Based on total visit time, I have performed more than 50% of the visit. Patient Condition at Discharge: Stable Plan - Discharge Summary New Discharge Prescriptions: New Famotidine [Pepcid] 20 mg PO BID 15 Days #30 tab EPINEPHrine (Auto Inject) [Epipen] 0.3 mg IM ONCE PRN 1 Days #4 each PRN Reason: Anaphylaxis Continue Simvastatin 40 mg PO HS Levothyroxine Sodium [Synthroid] 125 mcg PO QAM Latanoprost [Latanoprost 0.005%] 1 drop BOTH EYES HS Brimonidine Tartrate/Timolol [Combigan 0.2%/0.5% Ophth Soln] 1 drop LEFT EYE Q12HR lisinopriL [Lisinopril] 10 mg PO QAM Ubidecarenone [Co Q-10] 300 mg PO BID Folic Acid 1 mg PO DAILY Cholecalciferol [Vitamin D3 (25 Mcg = 1000 Iu)] 1,000 unit PO DAILY Discharge Medication List Brimonidine Tartrate/Timolol [Combigan 0.2%/0.5% Ophth Soln] 1 drop LEFT EYE Q12HR 09/27/14 [History] Folic Acid 1 mg PO DAILY 09/27/14 [History] Latanoprost [Latanoprost 0.005%] 1 drop BOTH EYES HS 09/27/14 [History] Levothyroxine Sodium [Synthroid] 125 mcg PO QAM 09/27/14 [History] Simvastatin 40 mg PO HS 09/27/14 [History] Ubidecarenone [Co Q-10] 300 mg PO BID 09/27/14 [History] lisinopriL [Lisinopril] 10 mg PO QAM 09/27/14 [History] Cholecalciferol [Vitamin D3 (25 Mcg = 1000 Iu)] 1,000 unit PO DAILY 09/29/14 [History] EPINEPHrine (Auto Inject) [Epipen] 0.3 mg IM ONCE PRN 1 Days #4 each 01/02/24 [Rx] Famotidine [Pepcid] 20 mg PO BID 15 Days #30 tab 01/02/24 [Rx] Follow up Appointment(s)/Referral(s): Georges Padgett DO [Doctor of Osteopathic Medicine] - 1 Week Raphael Saeed MD [Primary Care Provider] - 1-2 days Activity/Diet/Wound Care/Special Instructions: activity limited until follow up follow up with pcp on discharge follow up with suction dredge dumping supervisor outpatient keep epi pen with you at all times call 911 or report to your nearest er in an emergency Discharge Disposition: HOME SELF-CARE
--- NOTE | 2024-01-02 18:34 | P.CNPUL ---
History of Present Illness Consult date: 01/02/24 Requesting physician: Eric Nichols History of present illness: 68-year-old man presents to the ED believes he is having an allergic reaction. Patient states he has a sulfite allergy. He states yesterday he began taking bowel prep for scheduled colonoscopy. He stated initially did not think problems but after the first glass of prep he began to feel stable lip tingling. By the second class he began to feel chest tightness, trouble breathing/throat closing, nausea, vomiting and hives. After checking the label realized there were sulfites so he came came to the emergency department. He received 1 dose of epinephrine, Benadryl, and Solu-Medrol. EKG showed sinus rhythm. Chest x- ray was unremarkable. Thoracic aorta CT was also unremarkable. Currently, he is lying comfortably in bed in no apparent distress and pleasant. He denies any chest pain, trouble breathing, and has no other complaints at this time. Review of Systems REVIEW OF SYSTEMS: CONSTITUTIONAL: Denies any recent significant weight loss or weight gain. EYES: Denies change in vision. EARS, NOSE, MOUTH, THROAT: Denies headaches, denies sore throat. CARDIOVASCULAR: Denies chest pain, palpitations or syncopal episodes. RESPIRATORY: Denies shortness of breath, no cough, congestion or hemoptysis. GASTROINTESTINAL: Denies change in appetite, denies abdominal pain= GENITOURINARY: Denies hematuria, denies infections. MUSKULOSKELETAL: Denies pain, denies swelling. INTEGUMENTARY: Denies rash, denies eczema. NEUROLOGICAL: Denies recent memory loss, no recent seizure activity. PSYCHIATRIC: Denies anxiety, denies depression. HEMATOLOGIC/LYMPHATIC: Denies anemia, denies enlarged lymph nodes. Past Medical History Past Medical History: Cancer, Eye Disorder, Hyperlipidemia, Hypertension, Thyroid Disorder Additional Past Medical History / Comment(s): GLAUCOMA LT EYE R/T INJURY. PROSTATE CANCER History of Any Multi-Drug Resistant Organisms: None Reported Past Surgical History: Hernia Repair, Orthopedic Surgery, Prostate Surgery, Tonsillectomy Additional Past Surgical History / Comment(s): COLONOSCOPY, PROSTATECTOMY, BILAT INGUINAL HERNIA, LT KNEE SX, Past Anesthesia/Blood Transfusion Reactions: Motion Sickness Past Psychological History: No Psychological Hx Reported Smoking Status: Former smoker - Past Family History Father Family Medical History: Coronary Artery Disease (CAD), Diabetes Mellitus Additional Family Medical History / Comment(s): age 45 Medications and Allergies Home Medications Medication Instructions Recorded Confirmed Type Brimonidine Tartrate/Timolol 1 drop LEFT EYE Q12HR 09/27/14 12/30/23 History [Combigan 0.2%/0.5% Ophth Soln] Folic Acid 1 mg PO DAILY 09/27/14 12/30/23 History Latanoprost [Latanoprost 0.005%] 1 drop BOTH EYES HS 09/27/14 12/30/23 History Levothyroxine Sodium [Synthroid] 125 mcg PO QAM 09/27/14 12/30/23 History Simvastatin 40 mg PO HS 09/27/14 12/30/23 History Ubidecarenone [Co Q-10] 300 mg PO BID 09/27/14 12/30/23 History lisinopriL [Lisinopril] 10 mg PO QAM 09/27/14 12/30/23 History Cholecalciferol [Vitamin D3 (25 1,000 unit PO DAILY 09/29/14 12/30/23 History Mcg = 1000 Iu)] EPINEPHrine (Auto Inject) [Epipen] 0.3 mg IM ONCE PRN 1 Days #4 each 01/02/24 Rx Famotidine [Pepcid] 20 mg PO BID 15 Days #30 tab 01/02/24 Rx Allergies Allergy/AdvReac Type Severity Reaction Status Date / Time aspirin Allergy POSTIVE ON Verified 01/01/24 20:46 ALLERGY TEST Penicillins Allergy Swelling Verified 01/01/24 20:46 shellfish derived [Shrimp] Allergy Anaphylaxis Verified 01/01/24 20:46 sulfite Allergy POSITIVE Verified 01/01/24 20:46 ON ALLERGY TEST Physical Exam Vitals: Vital Signs Temp Pulse Resp BP Pulse Ox 01/02/24 09:16 68 16 110/60 98 01/02/24 08:27 99.2 F 69 16 109/60 01/02/24 06:00 71 18 109/67 95 01/02/24 04:00 80 18 124/74 98 01/02/24 02:00 86 18 117/69 95 01/02/24 00:34 92 18 129/80 98 01/01/24 23:00 80 17 127/59 100 01/01/24 22:30 86 20 144/113 95 01/01/24 21:49 84 18 102/77 92 L 01/01/24 21:47 96 20 79/54 93 L 01/01/24 21:45 22 01/01/24 21:36 90 22 74/56 92 L 01/01/24 21:34 86 24 79/50 94 L 01/01/24 20:42 97.8 F 80 20 161/111 98 GENERAL: Well developed and in no acute distress. Pleasant. HEENT: No sclera icterus. Extraocular movements grossly intact. Moist buccal mucosa. Head is atraumatic, normocephalic. Hears conversational speech. No nasal drainage. NECK: Supple without lymphadenopathy. No JV distention. CHEST: Non-labored respirations and equal bilateral excursions. CARDIOVASCULAR: Regular rate and rhythm. Palpable 2+ radial pulses. ABDOMEN: Soft, nontender. Nondistended. Results - Laboratory Findings CBC and BMP: 01/01/24 21:45 01/01/24 21:45 Abnormal lab findings: Abnormal Labs 01/01/24 01/01/24 21:45 21:45 Neutrophils # (Manual) 1.20 L Lymphocytes # (Manual) 4.82 H Metamyelocytes # (Man) 0.13 H Myelocytes # (Manual) 0.40 H BUN 23 H Creatinine 1.34 H Glucose 112 H - Diagnostic Findings Chest x-ray: image reviewed CT scan - chest: image reviewed U/S of Legs: image reviewed Assessment and Plan Assessment: Anaphylactic Reaction Resolved Monitor vital signs Patient will be discharged today Follow-up outpatient for colonoscopy Time with Patient: Greater than 30
[2024-01-02] MEDS ORDERED: ATORVASTATIN 20 MG TAB PO SCH (21:00)
[2024-01-02] MEDS ORDERED: LATANOPROST 0.005% OPHTH DROPS 2.5 ML BTL BOTH EYES SCH (21:00)
== END 2024-01-02 09:16 | disposition home or self-care (01) ==
LOC: EC 20:41 → 3SCARD 23:14
PROVIDERS: ADMIT Hospitalist; ATTEND Hospitalist
DX: T78.2XXA Anaphylactic shock, unspecified, initial encounter (principal); R06.02 Shortness of breath; R00.2 Palpitations; R06.00 Dyspnea, unspecified; Z98.890 Other specified postprocedural states; E78.5 Hyperlipidemia, unspecified; I10 Essential (primary) hypertension; E07.9 Disorder of thyroid, unspecified; H40.9 Unspecified glaucoma; Z85.46 Personal history of malignant neoplasm of prostate; Z90.79 Acquired absence of other genital organ(s); E66.9 Obesity, unspecified; S05.92XS Unspecified injury of left eye and orbit, sequela; Z90.49 Acquired absence of other specified parts of digestive tract; Z87.891 Personal history of nicotine dependence; Z88.2 Allergy status to sulfonamides; Z88.8 Allergy status to other drugs, medicaments and biological substances; Z88.0 Allergy status to penicillin; Z91.013 Allergy to seafood; Z83.3 Family history of diabetes mellitus; Z82.49 Family history of ischemic heart disease and other diseases of the circulatory system
CPT/HCPCS: 96361; 96365; 96375; 99285; 36415; 93005; 80053; 82150; 83690; 83735; 84484; 85025; 71045; 71275; 74174; G0378 ×2; J0171; J1200; J2405; J3490; Q9967; J2919

== ENCOUNTER 2024-02-03 12:00 | Day surgery (SDC) | payer BC ==
[2024-02-03] MEDS ORDERED: PROPOFOL 10 MG/ML 20 ML VIAL IV ONE (12:56)
[2024-02-03] MEDS ORDERED: LACTATED RINGERS 1,000 ML BAG ONE (12:56)
--- NOTE | 2024-02-06 15:56 | OP ---
OPERATIVE REPORT DATE OF SERVICE : 02/03/2024 REQUESTING PHYSICIAN: Guillermo Lincoln MD BRIEF HISTORY: The patient is a 68-year-old pleasant white male scheduled to undergo colonoscopy as a part of evaluation of intermittent rectal bleeding for the last 6 months' duration. PROCEDURE PERFORMED: Colonoscopy with biopsy. PREOPERATIVE DIAGNOSIS: Intermittent rectal bleeding. ANESTHESIA: IV sedation per Anesthesia. DESCRIPTION OF PROCEDURE: After informed consent was obtained from the patient, he was brought into the endoscopy unit. IV conscious sedation was administered by Anesthesia under continuous monitoring. Initial digital rectal examination was normal. The Olympus CF-190 video colonoscope was introduced into the rectum, gradually advanced into the cecum. Careful examination was performed as the scope was gradually being withdrawn. The ileocecal valve and appendiceal orifice were visualized and appeared normal. The prep was excellent. Mucosa of the cecum and ascending colon appeared normal. In the transverse colon, there was a 3 mm polyp that was removed by cold biopsy. In the descending colon, there was a 5 mm polyp removed by cold biopsy. Sigmoid colon and rectum appeared normal. Retroflexion was performed in the rectum. Grade 2 internal hemorrhoids were noted and the patient tolerated the procedure well. IMPRESSION: 1. Grade 2 internal hemorrhoids. 2. 3 mm transverse colon polyp, status post removal by cold biopsy. 3. 5 mm descending colon polyp, status post removal by cold biopsy. RECOMMENDATIONS: Findings of this examination were discussed with the patient as well as the family. He was advised to be on a high-fiber diet and take fiber supplements on a regular basis. He will follow up with the biopsy results and if the biopsy reveals adenoma, he can have a repeat colonoscopy in 5 years. MMODL / IJN: [id number] /
== END 2024-02-03 13:50 ==
LOC: ORWHC2ENDO 12:00
PROVIDERS: ATTEND Internal Medicine Gastroenterology
DX: K64.1 Second degree hemorrhoids (principal); K63.5 Polyp of colon; I10 Essential (primary) hypertension; E78.5 Hyperlipidemia, unspecified; E03.9 Hypothyroidism, unspecified; Z85.46 Personal history of malignant neoplasm of prostate; Z79.890 Hormone replacement therapy; Z79.899 Other long term (current) drug therapy; Z88.0 Allergy status to penicillin; Z88.2 Allergy status to sulfonamides
CPT/HCPCS: 45380; 88305

== ENCOUNTER → 2024-03-09 | Outpatient (CLI) | payer BC ==
[2024-03-10 04:35] LABS: Cat Epith & Dander IgE <0.10 kU/L; Cladosporian herbarum IgE <0.10 kU/L; Clam IgE <0.10 kU/L; Cockroach IgE <0.10 kU/L; Dermato. farinae IgE <0.10 kU/L; Maple (Box Elder) IgE <0.10 kU/L; Oak IgE <0.10 kU/L; Scallop IgE <0.10 kU/L; Shrimp IgE <0.10 kU/L; Soybean IgE <0.10 kU/L; Walnut IgE (Food) <0.10 kU/L
== END | disposition home or self-care (01) ==
LOC: LABWHC1 11:33
PROVIDERS: ATTEND Internal Medicine Critical Care Medicine
DX: J30.2 Other seasonal allergic rhinitis (principal)
CPT/HCPCS: 36415; 82785; 85008; 86003

== ENCOUNTER → 2024-03-17 | Outpatient (CLI) | payer BC ==
[2024-03-18 03:52] LABS: Birch IgE <0.10 kU/L; Peanut IgE <0.10 kU/L; Ragweed,Common IgE <0.10 kU/L; Red Top (Bentgrass) IgE <0.10 kU/L
== END | disposition home or self-care (01) ==
LOC: LABWHC1 10:52
PROVIDERS: ATTEND Internal Medicine Critical Care Medicine
DX: J30.2 Other seasonal allergic rhinitis (principal)
CPT/HCPCS: 36415; 86003

== ENCOUNTER → 2024-06-01 | Outpatient (CLI) | payer BC ==
[2024-06-01 08:02] LABS: Basophils # (A) 0.1 k/uL (0-0.2); Basophils % (A) 1 %; Eosinophils # (A) 0.5 k/uL (0-0.7); Eosinophils % (A) 9 %; HCT 44.6 % (39.0-53.0); HGB 15.3 gm/dL (13.0-17.5); Lymphocytes # (A) 1.9 k/uL (1.0-4.8); Lymphocytes % (A) 32 %; MCH 31.9 pg (25.0-35.0); MCHC 34.3 g/dL (31.0-37.0); MCV 93.1 fL (80.0-100.0); Mean Platelet Volume 8.2; Monocytes # (A) 0.5 k/uL (0-1.0); Monocytes % (A) 9 %; Neutrophils # (A) 2.8 k/uL (1.3-7.7); Neutrophils % (A) 47 %; Platelet Count 181 k/uL (150-450); RDW 12.3 % (11.5-15.5)
[2024-06-01 13:21] LABS: ALT 19 U/L (10-49); AST 24 U/L (14-35); Albumin 4.1 g/dL (3.8-4.9); Albumin/Globulin Ratio 2.56 Ratio (1.60-3.17); Alkaline Phosphatase 62 U/L (41-126); Blood Urea Nitrogen 16.5 mg/dL (9.0-27.0); Calcium 9.3 mg/dL (8.7-10.3); Chloride 106 mmol/L (96-109); Chol/HDL Ratio 3.58 Ratio; Globulin 1.6 g/dL (1.6-3.3); Glucose 124 mg/dL (70-110); LDL Cholesterol,Calculated 65.7 mg/dL (0.0-131.0); Potassium 4.6 mmol/L (3.5-5.5); Sodium 139 mmol/L (135-145); T4, Free (Free Thyroxine) 1.55 ng/dL (0.80-1.80); Total Bilirubin 0.7 mg/dL (0.3-1.2); Total Protein 5.7 g/dL (6.2-8.2)
[2024-06-01 13:24] LABS: Prostate Specific Antigen <0.01 ng/mL (0.000-4.500)
== END | disposition home or self-care (01) ==
LOC: LABWHC1 06:58
PROVIDERS: ATTEND Urology
DX: Z00.00 Encounter for general adult medical examination without abnormal findings (principal); L25.5 Unspecified contact dermatitis due to plants, except food; E03.9 Hypothyroidism, unspecified; E78.5 Hyperlipidemia, unspecified; C61 Malignant neoplasm of prostate
CPT/HCPCS: 36415; 80053; 80061; 82306; 83036; 84153; 84439; 84443; 85025